=== PATIENT | female | born 1945 | race Hispanic/Latino ===

== ENCOUNTER 2016-02-10 14:16 | Inpatient (IN) | payer MEDICAID, MEDICARE ==
[~2016-02-10] VITALS: Ht 167.6 cm; Wt 74.8 kg
[~2016-02-10 14:16] MED LIST: ACETAMINOP500 MG/51 ORAL; ARICEPT10 MG ORAL; ASCORBIC ACID500 MG ORAL; ASPIR 8181 MG ORAL; ATIVAN0.5 MG ORAL; ATIVAN1 MG ORAL; CARAFATE1 G1 ORAL; CEFEPIME-D1 GM/50 ML IVPB; CELEXA20 MG PO; COGENTIN1 MG PO; COLACE100 MG ORAL; CRANBERRY400 MG PO; DEPAKOTE250 MG PO; FUROSEMIDE20 M1 ORAL; HEPARIN SO1000 UNIT3 SUBQ; INVANZ1 GM IVPB; METOPROLOL TART25 MG ORAL; MULTI VITAMIN1 EACH PO; NEURONTIN300 MG PO; NOVOLIN R100 UNIT/1 SUBQ; OMEPRAZOLE20 M2 ORAL; RISPERDAL2 MG ORAL; VICODIN ES1 EA ORAL; ZYPREXA5 MG ORAL
--- NOTE | 2016-02-10 14:45 | Emergency Room Report ---
History of Present Illness General Chief Complaint: Dyspnea/Respdistress Source: Medical Record, PMD Present Illness HPI 70 YO F sent by PMD from SNF for "low O2 sat at SNF." No other associated documented fever/chills, cough, c/o chest pain, SOB, abd pain per SNF/EMS. Patient not providing additional info at this time. Of note, when patient asleep, O2 sat is 89%. When stimulated, O2 sat to 98% on room air. Patient is breathing with neck extended, mouth wide open. Does not take deep breaths naturally. Allergies: Coded Allergies: ALCOHOL (Verified Allergy, Unknown, 11/28/09) Patient History Past Medical History: see triage record, old chart reviewed, other - Multiple UTIs Past Surgical History: unable to obtain Pertinent Family History: unable to obtain Social History: Denies: alcohol use, drug use, smoking Now: No Immunizations: UTD Reviewed Nursing Documentation: PMH: Agreed, PSxH: Agreed Nursing Documentation-PMH Hx Cardiac Problems: Yes - anemia Hx Hypertension: Yes Hx Diabetes: Yes Hx Cancer: No Hx Gastrointestinal Problems: Yes - gerd Hx Neurological Problems: Yes - multpile sclerosis, schizoprenia Hx Dementia: Yes Hx Multiple Sclerosis: Yes Review of Systems All Other Systems: limited - Patient is poor historian Physical Exam Vital Signs Date Time Temp Pulse Resp B/P Pulse Ox O2 Delivery O2 Flow Rate FiO2 02/10/16 14:22 97.5 65 14 116/57 97 Room Air Sp02 EP Interpretation: reviewed, normal, other - Sydnee patient asleep, O2 sat is 89%. When stimulated, O2 sat to 98% on room air. Patient is breathing with neck extended, mouth wide open. Does not take deep breaths naturally. General Appearance: normal inspection, well appearing, no apparent distress, alert, non-toxic, obese Head: normocephalic, atraumatic Eyes: bilateral eye EOMI, bilateral eye PERRL ENT: normal ENT inspection, hearing grossly normal, normal pharynx, no angioedema, normal voice Neck: normal inspection, full range of motion, supple, no meningismus, no bony tend Respiratory: normal inspection, lungs clear, normal breath sounds, no rhonchi, no respiratory distress, no retraction, no accessory muscle use, no wheezing Cardiovascular #1: regular rate, rhythm, no edema Gastrointestinal: normal inspection, normal bowel sounds, non tender, soft, no guarding, no hernia Genitourinary: no CVA tenderness Neurologic: normal inspection, alert, responsive, 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 I attest that this information is true, accurate and complete to the best of my knowledge. I understand that any falsification, omission, or concealment of material fact may subject me to administrative, civil, or criminal liability. This patient warrants hospital admission for extreme of age and has a condition that cannot be treated as outpatient. Diagnostic Impression: Primary Impression: Hypoxia ER Course 70 YO F sent from SNF for episode of alleged hypoxia. Patient desats to 89% when asleep. Improves to 98% on RA when stimulated. DDx includes sleep apnea, PNA, URI PLAN Will check basic labs, UA, CXR Re-eval EKG Diagnostic Results Rate: normal Rhythm: NSR ST Segments: no acute changes ASA given to the pt in ED: No Rhythm Strip Diag. Results EP Interpretation: yes Rate: 65 Rhythm: NSR, no PVC's, no ectopy Chest X-Ray Diagnostic Results EP Interpretation: Yes Findings: no consolidation, no effusion, no pneumothorax, no acute cardiopulmonary disease, other - Right elevated hemidiaphragm seen on previous CXRs Number of Views: 1 Reevaluation Time: 16:18 Last Vital Signs Date Time Temp Pulse Resp B/P Pulse Ox O2 Delivery O2 Flow Rate FiO2 02/10/16 14:22 97.5 65 14 116/57 97 Room Air Status: improved Reevaluation Impression Labs: 13K leuks. H&H stable. UA with 2-4WBCs, 3+ LE, no nitrities. Troponin 0 , CXR: No obvious acute PNA. Unchanged elevated right hemidiaphragm from previous ECG is NSR, no ischemia. A: Empiric Abx given for recurrent UTI. Endorsed to Dr Hassan at 419pm for tele admission for hypoxia episode and UTI Disposition: ADMITTED INPATIENT Condition: Serious ELIZABETH VILLAFANA M.D. Feb 10, 2016 14:45
[2016-02-10] MEDS ORDERED: MILK OF MA400 MG/51 ORAL (14:52)
[2016-02-10] MEDS ORDERED: NUEDEXTA 20-101 EAC1 PO (14:52)
[2016-02-10] MEDS ORDERED: UTI-STAT L3875 MG/31 PO (14:52)
[2016-02-10] MEDS ORDERED: GERI-TUSSI100 MG/5 M PO (14:58)
[2016-02-10] MEDS ORDERED: IPRATROPIU0.2 MG/1 M HHN (14:58)
[2016-02-10] MEDS ORDERED: ATARAX25 MG ORAL (14:58)
[2016-02-10 14:59] VITALS: BP 116/57
[2016-02-10] MEDS ORDERED: KLONOPIN1 MG ORAL (15:01)
[2016-02-10 15:18] LABS: BASOPHILS % (AUTO) 0.7 % (0.0-2.0); EOSINOPHILS % (AUTO) 0.1 % (0.0-3.0); LYMPHOCYTES % (AUTO) 15.2 % (20.0-45.0); MEAN CORPUSCULAR HEMOGLOBIN 30.1 PG (27.0-31.0); MEAN CORPUSCULAR VOLUME 94 FL (80-99); MONOCYTES % (AUTO) 6.6 % (1.0-10.0); NEUTROPHILS % (AUTO) 77.4 % (45.0-75.0); PLATELET COUNT 204 K/UL (150-450); RED BLOOD COUNT 3.99 M/UL (4.20-5.40); RED CELL DISTRIBUTION WIDTH 13.7 % (11.6-14.8); WHITE BLOOD COUNT 13.2 K/UL (4.8-10.8)
[2016-02-10 15:29] LABS: APPEARANCE,URINE SLIGHTLY CLOUDY; KETONES,URINE NEGATIVE (NEGATIVE); LEUKOCYTE ESTERASE ,URINE 3+ (NEGATIVE); NITRITE,URINE NEGATIVE (NEGATIVE); PH,URINE 6.5 (4.5-8.0); PROTEIN,URINE 2+ (NEGATIVE); UROBILINOGEN,URINE 1 MG/DL (0.0-1.0)
[2016-02-10 15:38] LABS: ALANINE AMINOTRANSFERASE < 5 U/L (3-33); ALBUMIN/GLOBULIN RATIO 0.8 (1.0-2.7); ANION GAP 14 (5-15); ASPARTATE AMINO TRANSFERASE 12 U/L (5-40); CALCIUM 8.7 mg/dL (8.6-10.2); CARBON DIOXIDE 29 mEQ/L (20-30); CHLORIDE 94 mEQ/L (98-107); CREATININE 0.6 mg/dL (0.5-0.9); HEMOLYSIS 46; POTASSIUM 3.9 mEQ/L (3.4-4.9); SODIUM 137 mEQ/L (135-145); TOTAL PROTEIN 7.1 g/dL (6.6-8.7)
[2016-02-10 15:39] LABS: AMORPHOUS SEDIMENT,UR FEW /LPF; BACTERIA,URINE FEW /HPF; RBC,URINE 0-2 /HPF (0 - 2); SQUAMOUS EPITHELIAL CELL,UR FEW /LPF (NONE/OCC)
[2016-02-10 15:41] LABS: TROPONIN I < 0.30 ng/mL (<=0.30)
[2016-02-10 15:48] LABS: CKMB < 1.5 ng/mL (< 3.8)
[2016-02-10 15:52] VITALS: BP 108/54
[2016-02-10] MEDS ORDERED: Zosyn 3.375gm inj ONE (16:33)
[2016-02-10] MEDS ORDERED: DuoNeb 0.5-3(2.5)mg/3ml neb HHN PRN (16:45)
[2016-02-10] MEDS ORDERED: Miralax 17gm pkt ORAL PRN (16:45)
[2016-02-10] MEDS ORDERED: Mylanta II UD 30ml ORAL PRN (16:45)
[2016-02-10] MEDS ORDERED: Nitroglycerin Subl 0.4mg tab (Bottle Of 25) SL PRN (16:45)
--- NOTE | 2016-02-10 16:49 | Consultation ---
History of Present Illness General Date patient seen: Feb 10, 2016 Chief Complaint: Dyspnea/Respdistress Reason for Consultation: christopheralejandra Present Illness HPI 70year old female with hx of dementia, psychosis, depression, multiple sclerosis , half-way resident sent in for low oxygen saturation at SNF. Pt is being admitted to rule out early pneumonia, influenza. Pt was also desaturating to 89 % in ER. Patient looks comfortable and doesn't have any other complains. Allergies: Coded Allergies: ALCOHOL (Verified Allergy, Unknown, 11/28/09) Medication History Scheduled Ascorbic Acid* (Ascorbic Acid*), 500 MG ORAL BID, (Reported) Aspirin* (Aspir 81*), 81 MG ORAL DAILY, (Reported) Benztropine Mesylate (Benztropine Mesylate), 1 MG PO BID, (Reported) Citalopram Hydrobromide* (Celexa*), 5 MG PO EVERY OTHER DAY, (Reported) Clonazepam* (Klonopin*), 1 MG ORAL Q6H, (Reported) Cran/Vitc/Mannose/Inulin/Brom (Uti-Stat Liquid), 3,875 MG PO DAILY, (Reported) Cranberry (Cranberry), 1 TAB PO BID, (Reported) Dextromethorphan Hbr/Quinidine (Nuedexta 20-10 Mg Capsule), 1 EACH PO BID, ( Reported) Divalproex Sodium* (Depakote*), 250 MG PO Q12HR, (Reported) Docusate Sodium* (Colace*), 100 MG ORAL DAILY, (Reported) Donepezil Hcl* (Aricept*), 10 MG ORAL BEDTIME, (Reported) Ertapenem Sodium* (INVanz*), 1 GM IVPB Q24H, (Reported) Furosemide* (Lasix*), 20 MG ORAL DAILY, (Reported) Gabapentin (Neurontin), 300 MG PO BID, (Reported) Guaifenesin (Denise-Tussin), 100 MG PO EVERY 6 HOURS, (Reported) Heparin Sodium,Porcine/Pf (Heparin Sod 1,000 Unit/Ml Vial), 5,000 UNIT SUBQ Q12HR, (Reported) Hydroxyzine HCl (Hydroxyzine HCl), 25 MG ORAL FOUR TIMES A DAY, (Reported) Insulin Regular, Human* (Novolin R*), 0 SUBQ .SLIDING SCALE, (Reported) Magnesium Hydroxide* (Milk Of Magnesia*), 30 ML ORAL DAILY, (Reported) Metoprolol Tartrate* (Metoprolol Tartrate*), 25 MG ORAL Q12HR, (Reported) Multivitamin (Multi Vitamin Daily), 1 EACH PO DAILY, (Reported) Olanzapine* (Zyprexa*), 5 MG ORAL BID, (Reported) Omeprazole (Omeprazole), 20 MG ORAL ACBREAKFAST, (Reported) Risperidone* (Risperdal*), 2 MG ORAL THREE TIMES A DAY, (Reported) Sucralfate* (Carafate*), 1 GM ORAL AC, (Reported) Scheduled PRN Acetaminophen (Acetaminophen), 650 MG ORAL Q4H PRN for Mild Pain/Temp > 100.5, ( Reported) Acetaminophen/Hydrocodone 7.5/750 (Vicodin Es), 1 TAB ORAL Q4HR PRN for Moderate Pain (Pain Scale 4-6), (Reported) Ipratropium Fossil 0.5MG/2.5ML (Ipratropium Fossil 0.5MG/2.5ML), 0.5 MG HHN EVERY 4 HOURS PRN for Shortness of Breath, (Reported) Lorazepam* (Ativan*), 0.25 MG ORAL BID PRN for For Anxiety, (Reported) Patient History Healthcare decision maker Resuscitation status Advanced Directive on File Review of Systems All Other Systems: negative except mentioned in HPI Physical Exam Lines, tubes and drains: peripheral HEENT: normocephalic, atraumatic Neck: non-tender, normal alignment Respiratory/Chest: chest wall non-tender, lungs clear Cardiovascular/Chest: normal peripheral pulses, normal rate Abdomen: normal bowel sounds, non tender Genitourinary/Rectal: normal genital exam, normal rectal exam Skin Exam: normal pigmentation 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 Last 24 Hour Vital Signs Date Time Temp Pulse Resp B/P Pulse Ox O2 Delivery O2 Flow Rate FiO2 02/10/16 15:52 71 18 108/54 97 Nasal Cannula 2.0 02/10/16 15:05 65 14 Room Air 02/10/16 14:59 97.5 14 116/57 97 Room Air 02/10/16 14:22 97.5 65 14 116/57 97 Room Air Laboratory Tests Test 02/10/16 14:45 12/30/16 15:20 White Blood Count 13.2 K/UL (4.8-10.8) H Red Blood Count 3.99 M/UL (4.20-5.40) L Hemoglobin 12.0 G/DL (12.0-16.0) Hematocrit 37.4 % (37.0-47.0) Mean Corpuscular Volume 94 FL (80-99) Mean Corpuscular Hemoglobin 30.1 PG (27.0-31.0) Mean Corpuscular Hemoglobin Concent 32.0 G/DL (32.0-36.0) Red Cell Distribution Width 13.7 % (11.6-14.8) Platelet Count 204 K/UL (150-450) Mean Platelet Volume 8.0 FL (6.5-10.1) Neutrophils (%) (Auto) 77.4 % (45.0-75.0) H Lymphocytes (%) (Auto) 15.2 % (20.0-45.0) L Monocytes (%) (Auto) 6.6 % (1.0-10.0) Eosinophils (%) (Auto) 0.1 % (0.0-3.0) Basophils (%) (Auto) 0.7 % (0.0-2.0) Sodium Level 137 mEQ/L (135-145) Potassium Level 3.9 mEQ/L (3.4-4.9) Chloride Level 94 mEQ/L (98-107) L Carbon Dioxide Level 29 mEQ/L (20-30) Anion Gap 14 (5-15) Blood Urea Nitrogen 16 mg/dL (7-23) Creatinine 0.6 mg/dL (0.5-0.9) Estimat Glomerular Filtration Rate mL/min (>60) Glucose Level 122 mg/dL (74-106) H Calcium Level 8.7 mg/dL (8.6-10.2) Total Bilirubin 0.5 mg/dL (0.0-1.2) Aspartate Amino Transf (AST/SGOT) 12 U/L (5-40) Alanine Aminotransferase (ALT/SGPT) < 5 U/L (3-33) Alkaline Phosphatase 65 U/L (35-104) Creatine Kinase MB < 1.5 ng/mL (< 3.8) Troponin I < 0.30 ng/mL (<=0.30) Total Protein 7.1 g/dL (6.6-8.7) Albumin 3.2 g/dL (3.5-5.2) L Globulin 3.9 g/dL Albumin/Globulin Ratio 0.8 (1.0-2.7) L Urine Color Yellow Urine Appearance Slightly cloudy Urine pH 6.5 (4.5-8.0) Urine Specific [place] 1.010 (1.005-1.035) Urine Protein 2+ (NEGATIVE) H Urine Glucose (UA) Negative (NEGATIVE) Urine Ketones Negative (NEGATIVE) Urine Occult Blood 2+ (NEGATIVE) H Urine Nitrite Negative (NEGATIVE) Urine Bilirubin Negative (NEGATIVE) Urine Urobilinogen 1 MG/DL (0.0-1.0) H Urine Leukocyte Esterase 3+ (NEGATIVE) H Urine RBC 0-2 /HPF (0 - 2) Urine WBC 2-4 /HPF (0 - 2) Urine Squamous Epithelial Cells Few /LPF (NONE/OCC) Urine Amorphous Sediment Few /LPF (NONE) H Urine Bacteria Few /HPF (NONE) Height (Feet): 5 Height (Inches): 6.00 Weight (Pounds): 165 Medications Current Medications Medications (Trade) Dose Ordered Sig/Ivone Route PRN Reason Start Time Stop Time Status Last Admin Dose Admin Acetaminophen (Tylenol) 650 mg Q4H PRN ORAL fever 02/10/16 16:45 03/11/16 16:44 UNV Al Hydroxide/Mg Hydroxide (Mylanta II) 30 ml Q6H PRN ORAL dyspepsia 02/10/16 16:45 03/11/16 16:44 UNV Albuterol/ Ipratropium 3 ml 3 ml EVERY 4 HOURS PRN HHN Shortness of Breath 02/10/16 16:45 02/15/16 16:44 UNV Aspirin (Ecotrin) 81 mg DAILY ORAL 02/11/16 09:00 03/12/16 08:59 UNV Cefepime HCl/ Dextrose (Maxipime/D5W 50ml) 50 ml @ 100 mls/hr EVERY 12 HOURS IV 02/10/16 21:00 02/17/16 20:59 UNV Citalopram Hydrobromide (celeXA) 5 mg EVERY OTHER DAY ORAL 02/12/16 09:00 03/13/16 08:59 UNV Clonazepam (KlonoPIN) 1 mg Q6H ORAL 02/10/16 16:45 02/17/16 16:44 UNV Dextrose (Dextrose 50%) STAT PRN IV Hypoglycemia 02/10/16 16:45 03/11/16 16:44 UNV Divalproex Sodium (Depakote) 250 mg Q12HR ORAL 02/10/16 21:00 03/11/16 20:59 UNV Donepezil HCl (Aricept) 10 mg BEDTIME ORAL 02/10/16 21:00 03/11/16 20:59 UNV Gabapentin (Neurontin) 300 mg BID ORAL 02/10/16 18:00 03/11/16 17:59 UNV Heparin Sodium (Porcine) (Heparin 5000 units/ml) 5,000 units EVERY 12 HOURS SUBQ 02/10/16 21:00 03/11/16 20:59 UNV Insulin Aspart (NovoLOG) BEFORE MEALS AND HS SUBQ 02/10/16 21:00 03/11/16 20:59 UNV Metoprolol Tartrate (Lopressor) 25 mg Q12HR ORAL 02/10/16 21:00 03/11/16 20:59 UNV Nitroglycerin (Ntg) 0.4 mg Q5M PRN SL Prn Chest Pain 02/10/16 16:45 03/11/16 16:44 UNV Olanzapine (ZyPREXA) 5 mg BID ORAL 02/10/16 18:00 03/11/16 17:59 UNV Ondansetron HCl (Zofran) 4 mg Q6H PRN IVP Nausea & Vomiting 02/10/16 16:45 03/11/16 16:44 UNV Piperacillin Sod/ Tazobactam Sod/ Sodium Chloride (Zosyn/Sodium Chloride 100ml bag) 100 ml @ 200 mls/hr ONCE ONCE IVPB 02/10/16 16:30 02/10/16 16:59 02/10/16 16:34 Polyethylene Glycol (Miralax) 17 gm DAILYPRN PRN ORAL Constipation 02/10/16 16:45 03/11/16 16:44 UNV Risperidone (RisperDAL) 2 mg THREE TIMES A DAY ORAL 02/10/16 18:00 03/11/16 17:59 UNV Temazepam (Restoril) 15 mg HSPRN PRN ORAL Insomnia 02/10/16 16:45 02/17/16 16:44 UNV Assessment/Plan Problem List: (1) Pneumonia ICD Codes: J18.9 - Pneumonia, unspecified organism SNOMED: 336250293 (2) Anemia ICD Codes: D64.9 - Anemia SNOMED: 544346705 (3) Diabetes ICD Codes: E11.9 - Type 2 diabetes mellitus without complications SNOMED: 42630798 (4) Hypoxemia ICD Codes: R09.02 - Hypoxemia SNOMED: 969151472 (5) Multiple sclerosis ICD Codes: G35 - Multiple sclerosis SNOMED: 64898125 GIGI WASSERMAN Feb 10, 2016 16:49
[2016-02-10 20:00] VITALS: BP 133/72
[2016-02-10] MEDS: Heparin 5000 units/ml inj SUBQ SCH (21:00)
[2016-02-10] MEDS: Metoprolol 25mg tab ORAL SCH (21:00)
[2016-02-10] MEDS: NovoLOG Insulin Flexpen SUBQ SCH (21:00)
[2016-02-10] MEDS: Donepezil 10mg tab ORAL SCH (21:00)
[2016-02-11] VITALS: BP 140/87
[2016-02-11 04:00] VITALS: BP 129/68
[2016-02-11] MEDS: NovoLOG Insulin Flexpen SUBQ SCH ×4 (06:30→20:45)
[2016-02-11 08:09] VITALS: BP 105/57
[2016-02-11] MEDS: Metoprolol 25mg tab ORAL SCH ×2 (08:25→20:30)
[2016-02-11] MEDS: Heparin 5000 units/ml inj SUBQ SCH ×2 (08:27→20:41)
[2016-02-11] MEDS ORDERED: Aspirin EC 81mg tab ORAL SCH (09:00)
[2016-02-11 11:57] VITALS: BP 124/63
--- NOTE | 2016-02-11 13:21 | Infectious Diseases Prog Note ---
Assessment/Plan Problems: (1) UTI (urinary tract infection) Assessment & Plan: will send urine culture and continue cefepime for now (2) Leukocytosis Assessment & Plan: suspect due to UTI and dehydration, monitor WBC, recommend hydration (3) Hypoxemia Assessment & Plan: suspect sleep apnea, may need sleep study to confirm, pulmonary is following (4) Diabetes Assessment & Plan: recomment tight glycemic control to keep fasting less than 120 and premeal less than 130 Subjective Allergies: Coded Allergies: ALCOHOL (Verified Allergy, Unknown, 11/28/09) Objective Vital Signs Last 24 Hour Vital Signs Date Time Temp Pulse Resp B/P Pulse Ox O2 Delivery O2 Flow Rate FiO2 02/11/16 11:57 97.5 67 20 124/63 96 Nasal Cannula 2.0 02/11/16 08:25 65 105/57 02/11/16 08:15 64 02/11/16 08:09 97.0 65 20 105/57 97 Nasal Cannula 2.0 02/11/16 04:15 65 02/11/16 04:00 97.0 65 20 129/68 95 Room Air 02/11/16 00:00 97.7 69 16 140/87 95 Nasal Cannula 2.0 02/10/16 23:47 66 02/10/16 20:00 96.8 64 18 133/72 Nasal Cannula 2.0 02/10/16 20:00 63 02/10/16 17:14 97.5 71 18 108/54 97 Nasal Cannula 2.0 02/10/16 15:52 71 18 108/54 97 Nasal Cannula 2.0 02/10/16 15:05 65 14 Room Air 02/10/16 14:59 97.5 14 116/57 97 Room Air 02/10/16 14:22 97.5 65 14 116/57 97 Room Air Height (Feet): 5 Height (Inches): 6.00 Weight (Pounds): 165 Laboratory Tests Test 02/10/16 14:45 02/10/16 15:20 02/11/16 10:55 White Blood Count 13.2 K/UL (4.8-10.8) H Red Blood Count 3.99 M/UL (4.20-5.40) L Hemoglobin 12.0 G/DL (12.0-16.0) Hematocrit 37.4 % (37.0-47.0) Mean Corpuscular Volume 94 FL (80-99) Mean Corpuscular Hemoglobin 30.1 PG (27.0-31.0) Mean Corpuscular Hemoglobin Concent 32.0 G/DL (32.0-36.0) Red Cell Distribution Width 13.7 % (11.6-14.8) Platelet Count 204 K/UL (150-450) Mean Platelet Volume 8.0 FL (6.5-10.1) Neutrophils (%) (Auto) 77.4 % (45.0-75.0) H Lymphocytes (%) (Auto) 15.2 % (20.0-45.0) L Monocytes (%) (Auto) 6.6 % (1.0-10.0) Eosinophils (%) (Auto) 0.1 % (0.0-3.0) Basophils (%) (Auto) 0.7 % (0.0-2.0) Sodium Level 137 mEQ/L (135-145) Potassium Level 3.9 mEQ/L (3.4-4.9) Chloride Level 94 mEQ/L (98-107) L Carbon Dioxide Level 29 mEQ/L (20-30) Anion Gap 14 (5-15) Blood Urea Nitrogen 16 mg/dL (7-23) Creatinine 0.6 mg/dL (0.5-0.9) Estimat Glomerular Filtration Rate mL/min (>60) Glucose Level 122 mg/dL (74-106) H Calcium Level 8.7 mg/dL (8.6-10.2) Total Bilirubin 0.5 mg/dL (0.0-1.2) Aspartate Amino Transf (AST/SGOT) 12 U/L (5-40) Alanine Aminotransferase (ALT/SGPT) < 5 U/L (3-33) Alkaline Phosphatase 65 U/L (35-104) Creatine Kinase MB < 1.5 ng/mL (< 3.8) Troponin I < 0.30 ng/mL (<=0.30) Total Protein 7.1 g/dL (6.6-8.7) Albumin 3.2 g/dL (3.5-5.2) L Globulin 3.9 g/dL Albumin/Globulin Ratio 0.8 (1.0-2.7) L Urine Color Yellow Urine Appearance Slightly cloudy Urine pH 6.5 (4.5-8.0) Urine Specific [place] 1.010 (1.005-1.035) Urine Protein 2+ (NEGATIVE) H Urine Glucose (UA) Negative (NEGATIVE) Urine Ketones Negative (NEGATIVE) Urine Occult Blood 2+ (NEGATIVE) H Urine Nitrite Negative (NEGATIVE) Urine Bilirubin Negative (NEGATIVE) Urine Urobilinogen 1 MG/DL (0.0-1.0) H Urine Leukocyte Esterase 3+ (NEGATIVE) H Urine RBC 0-2 /HPF (0 - 2) Urine WBC 2-4 /HPF (0 - 2) Urine Squamous Epithelial Cells Few /LPF (NONE/OCC) Urine Amorphous Sediment Few /LPF (NONE) H Urine Bacteria Few /HPF (NONE) Urine Legionella Antigen Pending Current Medications Medications (Trade) Dose Ordered Sig/Ivone Route PRN Reason Start Time Stop Time Status Last Admin Dose Admin Acetaminophen (Tylenol) 650 mg Q4H PRN ORAL fever 02/10/16 16:45 03/11/16 16:44 Al Hydroxide/Mg Hydroxide (Mylanta II) 30 ml Q6H PRN ORAL dyspepsia 02/10/16 16:45 03/11/16 16:44 Albuterol/ Ipratropium 3 ml 3 ml Q4H PRN HHN Shortness of Breath 02/10/16 16:45 02/15/16 16:44 Aspirin (Ecotrin) 81 mg DAILY ORAL 02/11/16 09:00 03/12/16 08:59 02/11/16 08:25 Cefepime HCl/ Dextrose (Maxipime/D5W 50ml) 50 ml @ 100 mls/hr Q24H IVPB 02/10/16 20:00 02/17/16 19:59 02/10/16 20:30 Citalopram Hydrobromide (celeXA) 5 mg EVERY OTHER DAY ORAL 02/12/16 09:00 03/13/16 08:59 Clonazepam (KlonoPIN) 1 mg Q6H PRN ORAL AGITATION 02/11/16 12:00 02/18/16 11:59 Dextrose (Dextrose 50%) STAT PRN IV Hypoglycemia 02/10/16 16:45 03/11/16 16:44 Divalproex Sodium (Depakote) 250 mg Q12HR ORAL 02/10/16 21:00 03/11/16 20:59 02/11/16 08:25 Donepezil HCl (Aricept) 10 mg BEDTIME ORAL 02/10/16 21:00 03/11/16 20:59 Gabapentin (Neurontin) 300 mg BID ORAL 02/10/16 18:00 03/11/16 17:59 02/11/16 08:26 Heparin Sodium (Porcine) (Heparin 5000 units/ml) 5,000 units EVERY 12 HOURS SUBQ 02/10/16 21:00 03/11/16 20:59 02/11/16 08:27 Insulin Aspart (NovoLOG) BEFORE MEALS AND HS SUBQ 02/10/16 21:00 03/11/16 20:59 Metoprolol Tartrate (Lopressor) 25 mg Q12HR ORAL 02/10/16 21:00 03/11/16 20:59 02/11/16 08:25 Nitroglycerin (Ntg) 0.4 mg Q5M X 3 DOSES PRN SL Prn Chest Pain 02/10/16 16:45 03/11/16 16:44 Olanzapine (ZyPREXA) 5 mg Q12HR ORAL 02/10/16 21:00 03/11/16 20:59 02/11/16 08:25 Ondansetron HCl (Zofran) 4 mg Q6H PRN IVP Nausea & Vomiting 02/10/16 16:45 03/11/16 16:44 Polyethylene Glycol (Miralax) 17 gm DAILYPRN PRN ORAL Constipation 02/10/16 16:45 03/11/16 16:44 Risperidone (RisperDAL) 2 mg THREE TIMES A DAY ORAL 02/10/16 21:00 03/11/16 20:59 02/11/16 13:13 Temazepam (Restoril) 15 mg HSPRN PRN ORAL Insomnia 02/10/16 16:45 02/17/16 16:44 Mague Valladares M.D. Feb 11, 2016 13:21
--- NOTE | 2016-02-11 13:31 | Consultation ---
History of Present Illness General Date patient seen: Feb 10, 2016 Chief Complaint: Dyspnea/Respdistress Reason for Consultation: [email or web address] Present Illness HPI 70year old female with hx of dementia, psychosis, depression, multiple sclerosis , detention resident sent in for low oxygen saturation at SNF. Pt is being admitted to rule out early pneumonia, influenza. Pt was also desaturating to 89 % in ER. Patient looks comfortable and doesn't have any other complains. Allergies: Coded Allergies: ALCOHOL (Verified Allergy, Unknown, 11/28/09) Medication History Scheduled Ascorbic Acid* (Ascorbic Acid*), 500 MG ORAL BID, (Reported) Aspirin* (Aspir 81*), 81 MG ORAL DAILY, (Reported) Benztropine Mesylate (Benztropine Mesylate), 1 MG PO BID, (Reported) Citalopram Hydrobromide* (Celexa*), 5 MG PO EVERY OTHER DAY, (Reported) Clonazepam* (Klonopin*), 1 MG ORAL Q6H, (Reported) Cran/Vitc/Mannose/Inulin/Brom (Uti-Stat Liquid), 3,875 MG PO DAILY, (Reported) Cranberry (Cranberry), 1 TAB PO BID, (Reported) Dextromethorphan Hbr/Quinidine (Nuedexta 20-10 Mg Capsule), 1 EACH PO BID, ( Reported) Divalproex Sodium* (Depakote*), 250 MG PO Q12HR, (Reported) Docusate Sodium* (Colace*), 100 MG ORAL DAILY, (Reported) Donepezil Hcl* (Aricept*), 10 MG ORAL BEDTIME, (Reported) Ertapenem Sodium* (INVanz*), 1 GM IVPB Q24H, (Reported) Furosemide* (Lasix*), 20 MG ORAL DAILY, (Reported) Gabapentin (Neurontin), 300 MG PO BID, (Reported) Guaifenesin (Denise-Tussin), 100 MG PO EVERY 6 HOURS, (Reported) Heparin Sodium,Porcine/Pf (Heparin Sod 1,000 Unit/Ml Vial), 5,000 UNIT SUBQ Q12HR, (Reported) Hydroxyzine HCl (Hydroxyzine HCl), 25 MG ORAL FOUR TIMES A DAY, (Reported) Insulin Regular, Human* (Novolin R*), 0 SUBQ .SLIDING SCALE, (Reported) Magnesium Hydroxide* (Milk Of Magnesia*), 30 ML ORAL DAILY, (Reported) Metoprolol Tartrate* (Metoprolol Tartrate*), 25 MG ORAL Q12HR, (Reported) Multivitamin (Multi Vitamin Daily), 1 EACH PO DAILY, (Reported) Olanzapine* (Zyprexa*), 5 MG ORAL BID, (Reported) Omeprazole (Omeprazole), 20 MG ORAL ACBREAKFAST, (Reported) Risperidone* (Risperdal*), 2 MG ORAL THREE TIMES A DAY, (Reported) Sucralfate* (Carafate*), 1 GM ORAL AC, (Reported) Scheduled PRN Acetaminophen (Acetaminophen), 650 MG ORAL Q4H PRN for Mild Pain/Temp > 100.5, ( Reported) Acetaminophen/Hydrocodone 7.5/750 (Vicodin Es), 1 TAB ORAL Q4HR PRN for Moderate Pain (Pain Scale 4-6), (Reported) Ipratropium [place] 0.5MG/2.5ML (Ipratropium [place] 0.5MG/2.5ML), 0.5 MG HHN EVERY 4 HOURS PRN for Shortness of Breath, (Reported) Lorazepam* (Ativan*), 0.25 MG ORAL BID PRN for For Anxiety, (Reported) Patient History Healthcare decision maker Resuscitation status Full Code Advanced Directive on File Past Medical/Surgical History Past Medical/Surgical History: (1) Diabetes (2) Multiple sclerosis (3) Anemia Review of Systems All Other Systems: negative except mentioned in HPI Physical Exam General Appearance: WD/WN Lines, tubes and drains: central line HEENT: normocephalic, atraumatic Neck: non-tender Respiratory/Chest: chest wall non-tender, lungs clear Abdomen: normal bowel sounds Genitourinary/Rectal: normal genital exam Last 24 Hour Vital Signs Date Time Temp Pulse Resp B/P Pulse Ox O2 Delivery O2 Flow Rate FiO2 02/11/16 11:57 97.5 67 20 124/63 96 Nasal Cannula 2.0 02/11/16 08:25 65 105/57 02/11/16 08:15 64 02/11/16 08:09 97.0 65 20 105/57 97 Nasal Cannula 2.0 02/11/16 04:15 65 02/11/16 04:00 97.0 65 20 129/68 95 Room Air 02/11/16 00:00 97.7 69 16 140/87 95 Nasal Cannula 2.0 02/10/16 23:47 66 02/10/16 20:00 96.8 64 18 133/72 Nasal Cannula 2.0 02/10/16 20:00 63 02/10/16 17:14 97.5 71 18 108/54 97 Nasal Cannula 2.0 02/10/16 15:52 71 18 108/54 97 Nasal Cannula 2.0 02/10/16 15:05 65 14 Room Air 02/10/16 14:59 97.5 14 116/57 97 Room Air 02/10/16 14:22 97.5 65 14 116/57 97 Room Air Intake and Output 02/10/16 02/11/16 19:00 07:00 Output Total 100 ml Balance -100 ml Output Urine Total 100 ml # Voids 1 1 Laboratory Tests Test 02/10/16 14:45 02/10/16 15:20 02/11/16 10:55 White Blood Count 13.2 K/UL (4.8-10.8) H Red Blood Count 3.99 M/UL (4.20-5.40) L Hemoglobin 12.0 G/DL (12.0-16.0) Hematocrit 37.4 % (37.0-47.0) Mean Corpuscular Volume 94 FL (80-99) Mean Corpuscular Hemoglobin 30.1 PG (27.0-31.0) Mean Corpuscular Hemoglobin Concent 32.0 G/DL (32.0-36.0) Red Cell Distribution Width 13.7 % (11.6-14.8) Platelet Count 204 K/UL (150-450) Mean Platelet Volume 8.0 FL (6.5-10.1) Neutrophils (%) (Auto) 77.4 % (45.0-75.0) H Lymphocytes (%) (Auto) 15.2 % (20.0-45.0) L Monocytes (%) (Auto) 6.6 % (1.0-10.0) Eosinophils (%) (Auto) 0.1 % (0.0-3.0) Basophils (%) (Auto) 0.7 % (0.0-2.0) Sodium Level 137 mEQ/L (135-145) Potassium Level 3.9 mEQ/L (3.4-4.9) Chloride Level 94 mEQ/L (98-107) L Carbon Dioxide Level 29 mEQ/L (20-30) Anion Gap 14 (5-15) Blood Urea Nitrogen 16 mg/dL (7-23) Creatinine 0.6 mg/dL (0.5-0.9) Estimat Glomerular Filtration Rate mL/min (>60) Glucose Level 122 mg/dL (74-106) H Calcium Level 8.7 mg/dL (8.6-10.2) Total Bilirubin 0.5 mg/dL (0.0-1.2) Aspartate Amino Transf (AST/SGOT) 12 U/L (5-40) Alanine Aminotransferase (ALT/SGPT) < 5 U/L (3-33) Alkaline Phosphatase 65 U/L (35-104) Creatine Kinase MB < 1.5 ng/mL (< 3.8) Troponin I < 0.30 ng/mL (<=0.30) Total Protein 7.1 g/dL (6.6-8.7) Albumin 3.2 g/dL (3.5-5.2) L Globulin 3.9 g/dL Albumin/Globulin Ratio 0.8 (1.0-2.7) L Urine Color Yellow Urine Appearance Slightly cloudy Urine pH 6.5 (4.5-8.0) Urine Specific [place] 1.010 (1.005-1.035) Urine Protein 2+ (NEGATIVE) H Urine Glucose (UA) Negative (NEGATIVE) Urine Ketones Negative (NEGATIVE) Urine Occult Blood 2+ (NEGATIVE) H Urine Nitrite Negative (NEGATIVE) Urine Bilirubin Negative (NEGATIVE) Urine Urobilinogen 1 MG/DL (0.0-1.0) H Urine Leukocyte Esterase 3+ (NEGATIVE) H Urine RBC 0-2 /HPF (0 - 2) Urine WBC 2-4 /HPF (0 - 2) Urine Squamous Epithelial Cells Few /LPF (NONE/OCC) Urine Amorphous Sediment Few /LPF (NONE) H Urine Bacteria Few /HPF (NONE) Urine Legionella Antigen Pending Height (Feet): 5 Height (Inches): 6.00 Weight (Pounds): 165 Medications Current Medications Medications (Trade) Dose Ordered Sig/Ivone Route PRN Reason Start Time Stop Time Status Last Admin Dose Admin Acetaminophen (Tylenol) 650 mg Q4H PRN ORAL fever 02/10/16 16:45 03/11/16 16:44 Al Hydroxide/Mg Hydroxide (Mylanta II) 30 ml Q6H PRN ORAL dyspepsia 02/10/16 16:45 03/11/16 16:44 Albuterol/ Ipratropium 3 ml 3 ml Q4H PRN HHN Shortness of Breath 02/10/16 16:45 02/15/16 16:44 Aspirin (Ecotrin) 81 mg DAILY ORAL 02/11/16 09:00 03/12/16 08:59 02/11/16 08:25 Cefepime HCl/ Dextrose (Maxipime/D5W 50ml) 50 ml @ 100 mls/hr Q24H IVPB 02/10/16 20:00 02/17/16 19:59 02/10/16 20:30 Citalopram Hydrobromide (celeXA) 5 mg EVERY OTHER DAY ORAL 02/12/16 09:00 03/13/16 08:59 Clonazepam (KlonoPIN) 1 mg Q6H PRN ORAL AGITATION 02/11/16 12:00 02/18/16 11:59 Dextrose (Dextrose 50%) STAT PRN IV Hypoglycemia 02/10/16 16:45 03/11/16 16:44 Divalproex Sodium (Depakote) 250 mg Q12HR ORAL 02/10/16 21:00 03/11/16 20:59 02/11/16 08:25 Donepezil HCl (Aricept) 10 mg BEDTIME ORAL 02/10/16 21:00 03/11/16 20:59 Gabapentin (Neurontin) 300 mg BID ORAL 02/10/16 18:00 03/11/16 17:59 02/11/16 08:26 Heparin Sodium (Porcine) (Heparin 5000 units/ml) 5,000 units EVERY 12 HOURS SUBQ 02/10/16 21:00 03/11/16 20:59 02/11/16 08:27 Insulin Aspart (NovoLOG) BEFORE MEALS AND HS SUBQ 02/10/16 21:00 03/11/16 20:59 Metoprolol Tartrate (Lopressor) 25 mg Q12HR ORAL 02/10/16 21:00 03/11/16 20:59 02/11/16 08:25 Nitroglycerin (Ntg) 0.4 mg Q5M X 3 DOSES PRN SL Prn Chest Pain 02/10/16 16:45 03/11/16 16:44 Olanzapine (ZyPREXA) 5 mg Q12HR ORAL 02/10/16 21:00 03/11/16 20:59 02/11/16 08:25 Ondansetron HCl (Zofran) 4 mg Q6H PRN IVP Nausea & Vomiting 02/10/16 16:45 03/11/16 16:44 Polyethylene Glycol (Miralax) 17 gm DAILYPRN PRN ORAL Constipation 02/10/16 16:45 03/11/16 16:44 Risperidone (RisperDAL) 2 mg THREE TIMES A DAY ORAL 02/10/16 21:00 03/11/16 20:59 02/11/16 13:13 Temazepam (Restoril) 15 mg HSPRN PRN ORAL Insomnia 02/10/16 16:45 02/17/16 16:44 Assessment/Plan Problem List: (1) Pneumonia ICD Codes: J18.9 - Pneumonia, unspecified organism SNOMED: 514411510 (2) Hypoxemia ICD Codes: R09.02 - Hypoxemia SNOMED: 285668538 (3) Diabetes ICD Codes: E11.9 - Type 2 diabetes mellitus without complications SNOMED: 88174113 (4) Multiple sclerosis ICD Codes: G35 - Multiple sclerosis SNOMED: 81116150 (5) Anemia ICD Codes: D64.9 - Anemia SNOMED: 702991043 Assessment/Plan respiratory treatment IV antibiotics check sputum sputum induction chest pt dvt prophylaxis GIGI WASSERMAN Feb 11, 2016 13:31
--- NOTE | 2016-02-11 13:36 | Pulmonology Progress Note ---
Assessment/Plan Problems: (1) Pneumonia (2) Anemia (3) Diabetes (4) Hypoxemia (5) Multiple sclerosis Assessment/Plan continue antibiotics respiratory treatment check sputum on cefepime might go to med/surg Subjective ROS Limited/Unobtainable: No Interval Events: looks comfortable, no new complains Allergies: Coded Allergies: ALCOHOL (Verified Allergy, Unknown, 11/28/09) Objective Last 24 Hour Vital Signs Date Time Temp Pulse Resp B/P Pulse Ox O2 Delivery O2 Flow Rate FiO2 02/11/16 11:57 97.5 67 20 124/63 96 Nasal Cannula 2.0 02/11/16 08:25 65 105/57 02/11/16 08:15 64 02/11/16 08:09 97.0 65 20 105/57 97 Nasal Cannula 2.0 02/11/16 04:15 65 02/11/16 04:00 97.0 65 20 129/68 95 Room Air 02/11/16 00:00 97.7 69 16 140/87 95 Nasal Cannula 2.0 02/10/16 23:47 66 02/10/16 20:00 96.8 64 18 133/72 Nasal Cannula 2.0 02/10/16 20:00 63 02/10/16 17:14 97.5 71 18 108/54 97 Nasal Cannula 2.0 02/10/16 15:52 71 18 108/54 97 Nasal Cannula 2.0 02/10/16 15:05 65 14 Room Air 02/10/16 14:59 97.5 14 116/57 97 Room Air 02/10/16 14:22 97.5 65 14 116/57 97 Room Air Intake and Output 02/10/16 02/11/16 19:00 07:00 Output Total 100 ml Balance -100 ml Output Urine Total 100 ml # Voids 1 1 General Appearance: WD/WN HEENT: normocephalic, atraumatic Respiratory/Chest: chest wall non-tender, lungs clear Cardiovascular: normal peripheral pulses, normal rate Abdomen: normal bowel sounds, soft, non tender Extremities: no cyanosis Skin: no rash Neurologic/Psychiatric: abnormal CN, motor weakness, sensory deficit Lymphatic: no neck adenopathy Musculoskeletal: normal muscle bulk Laboratory Tests 02/10/16 14:45: White Blood Count 13.2H, Red Blood Count 3.99L, Hemoglobin 12.0, Hematocrit 37.4 , Mean Corpuscular Volume 94, Mean Corpuscular Hemoglobin 30.1, Mean Corpuscular Hemoglobin Concent 32.0, Red Cell Distribution Width 13.7, Platelet Count 204, Mean Platelet Volume 8.0, Neutrophils (%) (Auto) 77.4H, Lymphocytes ( %) (Auto) 15.2L, Monocytes (%) (Auto) 6.6, Eosinophils (%) (Auto) 0.1, Basophils (%) (Auto) 0.7, Sodium Level 137, Potassium Level 3.9, Chloride Level 94L, Carbon Dioxide Level 29, Anion Gap 14, Blood Urea Nitrogen 16, Creatinine 0.6, Estimat Glomerular Filtration Rate , Glucose Level 122H, Calcium Level 8.7 , Total Bilirubin 0.5, Aspartate Amino Transf (AST/SGOT) 12, Alanine Aminotransferase (ALT/SGPT) < 5, Alkaline Phosphatase 65, Creatine Kinase MB < 1.5, Troponin I < 0.30, Total Protein 7.1, Albumin 3.2L, Globulin 3.9, Albumin/ Globulin Ratio 0.8L 02/10/16 15:20: Urine Color Yellow, Urine Appearance Slightly cloudy, Urine pH 6.5, Urine Specific [place] 1.010, Urine Protein 2+H, Urine Glucose (UA) Negative, Urine Ketones Negative, Urine Occult Blood 2+H, Urine Nitrite Negative, Urine Bilirubin Negative, Urine Urobilinogen 1H, Urine Leukocyte Esterase 3+H, Urine RBC 0-2, Urine WBC 2-4, Urine Squamous Epithelial Cells Few, Urine Amorphous Sediment FewH, Urine Bacteria Few 02/11/16 10:55: Urine Legionella Antigen [Pending] Current Medications Medications (Trade) Dose Ordered Sig/Ivone Route PRN Reason Start Time Stop Time Status Last Admin Dose Admin Acetaminophen (Tylenol) 650 mg Q4H PRN ORAL fever 02/10/16 16:45 03/11/16 16:44 Al Hydroxide/Mg Hydroxide (Mylanta II) 30 ml Q6H PRN ORAL dyspepsia 02/10/16 16:45 03/11/16 16:44 Albuterol/ Ipratropium 3 ml 3 ml Q4H PRN HHN Shortness of Breath 02/10/16 16:45 02/15/16 16:44 Aspirin (Ecotrin) 81 mg DAILY ORAL 02/11/16 09:00 03/12/16 08:59 12/31/16 08:25 Cefepime HCl/ Dextrose (Maxipime/D5W 50ml) 50 ml @ 100 mls/hr Q24H IVPB 02/10/16 20:00 02/17/16 19:59 02/10/16 20:30 Citalopram Hydrobromide (celeXA) 5 mg EVERY OTHER DAY ORAL 02/12/16 09:00 03/13/16 08:59 Clonazepam (KlonoPIN) 1 mg Q6H PRN ORAL AGITATION 02/11/16 12:00 02/18/16 11:59 Dextrose (Dextrose 50%) STAT PRN IV Hypoglycemia 02/10/16 16:45 03/11/16 16:44 Divalproex Sodium (Depakote) 250 mg Q12HR ORAL 02/10/16 21:00 03/11/16 20:59 02/11/16 08:25 Donepezil HCl (Aricept) 10 mg BEDTIME ORAL 02/10/16 21:00 03/11/16 20:59 Gabapentin (Neurontin) 300 mg BID ORAL 02/10/16 18:00 03/11/16 17:59 02/11/16 08:26 Heparin Sodium (Porcine) (Heparin 5000 units/ml) 5,000 units EVERY 12 HOURS SUBQ 02/10/16 21:00 03/11/16 20:59 02/11/16 08:27 Insulin Aspart (NovoLOG) BEFORE MEALS AND HS SUBQ 02/10/16 21:00 03/11/16 20:59 Metoprolol Tartrate (Lopressor) 25 mg Q12HR ORAL 02/10/16 21:00 03/11/16 20:59 02/11/16 08:25 Nitroglycerin (Ntg) 0.4 mg Q5M X 3 DOSES PRN SL Prn Chest Pain 02/10/16 16:45 03/11/16 16:44 Olanzapine (ZyPREXA) 5 mg Q12HR ORAL 02/10/16 21:00 03/11/16 20:59 02/11/16 08:25 Ondansetron HCl (Zofran) 4 mg Q6H PRN IVP Nausea & Vomiting 02/10/16 16:45 03/11/16 16:44 Polyethylene Glycol (Miralax) 17 gm DAILYPRN PRN ORAL Constipation 12/30/16 16:45 03/11/16 16:44 Risperidone (RisperDAL) 2 mg THREE TIMES A DAY ORAL 02/10/16 21:00 03/11/16 20:59 02/11/16 13:13 Temazepam (Restoril) 15 mg HSPRN PRN ORAL Insomnia 02/10/16 16:45 02/17/16 16:44 GIGI WASSERMAN Feb 11, 2016 13:36
--- NOTE | 2016-02-11 14:38 | Diagnostic Imaging Report ---
Indication: PAIN Technique: One view of the chest Comparison: 08/21/2013 Findings: There is marked elevation of right hemidiaphragm again demonstrated. No definite acute infiltrates, effusions, or congestion. Upper limits of normal heart size. Findings are unchanged Impression: Findings as noted. No definite acute process
[2016-02-11 20:00] VITALS: BP 103/62
[2016-02-11] MEDS: Donepezil 10mg tab ORAL SCH (20:31)
--- NOTE | 2016-02-11 20:57 | Consultation ---
DATE OF CONSULTATION: INFECTIOUS DISEASE CONSULTATION CONSULTING PHYSICIAN: Mague Valladares M.D. REQUESTING PHYSICIAN: Dima Armenta M.D. REASON FOR CONSULTATION: Urinary tract infection. HISTORY OF PRESENT ILLNESS: The patient is a 70-year-old female with past medical history of coronary artery disease, hypertension, diabetes, GERD, and dementia, who was brought into [facility] from halfway home for hypoxemia and low oxygen saturation. The patient was noted to have low O2 sats with sleep around 89% and then when awaken, oxygen rise up to 98% on room air. She did not have any fever or chills. No cough or shortness of breath. No chest pain. No nausea or vomiting. No diarrhea. In ED, the patient was noted to breath with neck extended and mouth wide open. She had oxygen level of 97% on room air. Chest x-ray did not show any acute infiltration or effusion. Urine analysis showed evidence of infection, so I was consulted by the primary provider for antibiotics recommendation. As of note, the patient is demented and cannot provide any history. History was mainly obtained from the medical record. PAST MEDICAL HISTORY: Significant for coronary artery disease, anemia, hypertension, diabetes, GERD, dementia, and multiple sclerosis. PAST SURGICAL HISTORY: Unable to obtain. MEDICATIONS: She is on Celexa, Klonopin, Ecotrin, Depakote, Aricept, Lopressor, Zyprexa, Risperidone, and cefepime. ALLERGIES: She is allergic to alcohol. SOCIAL HISTORY: She lives at a halfway facility. No recent drugs, tobacco, or alcohol. FAMILY HISTORY: Noncontributory. REVIEW OF SYSTEMS: Unable to obtain. The patient is demented. PHYSICAL EXAMINATION: GENERAL: An elderly female, demented, resting in bed, and not in distress. VITAL SIGNS: Temperature 97.5 degrees, pulse 67, respirations 20, blood pressure 124/63, and pulse ox 96% on room air. HEENT: Normocephalic and atraumatic. Pupils reactive to light equally. Moist oral mucosa. No exudate. NECK: Supple. No lymphadenopathy. CARDIOVASCULAR: Regular rate and rhythm. No murmur. LUNGS: Clear bilaterally. Diminished breathing sound on the bases. ABDOMEN: Soft, nontender, and nondistended. Positive bowel sounds. No hepatosplenomegaly. No ascites. EXTREMITIES: No edema. No cyanosis. LABORATORY DATA: Lab today white count 13.2, hemoglobin 12, hematocrit 37.4, and platelet count 204,000. BUN of 16 and creatinine of 0.6. AST of 12, ALT less than 5, and alkaline phosphatase 65. Urinalysis showed +3 leukocyte esterase, few bacteria, and +2 protein. IMAGING: Chest x-ray did not show any evidence of acute infiltrates or pleural effusion. ASSESSMENT AND PLAN: 1. Urinary tract infection. We will send urine for culture. Continue cefepime for now empirically. 2. Leukocytosis, suspect due to urinary tract infection and dehydration. Recommend hydration. We will monitor WBC. 3. Hypoxemia, suspect sleep apnea, may need sleep study to confirm. Pulmonary is following. 4. Diabetes. Recommend tight glycemic control to keep fasting sugar level less than 120 and pre-meals less than 130. Mague Valladares M.D. DR: BERENICE JOB#: [id number] CC:
[2016-02-11] MEDS ORDERED: Nitroglycerin Subl 0.4mg tab (Bottle Of 25) SL PRN (23:45)
[2016-02-12] VITALS: BP 109/69
[2016-02-12] MEDS ORDERED: DuoNeb 0.5-3(2.5)mg/3ml neb HHN PRN (00:45)
[2016-02-12] MEDS ORDERED: Mylanta II UD 30ml ORAL PRN (01:18)
[2016-02-12] MEDS ORDERED: Miralax 17gm pkt ORAL PRN (01:23)
[2016-02-12 04:00] VITALS: BP 94/59
[2016-02-12] MEDS: NovoLOG Insulin Flexpen SUBQ SCH ×4 (06:30→21:00)
[2016-02-12 08:00] VITALS: BP 97/55
--- NOTE | 2016-02-12 08:48 | History and Physical Report ---
DATE OF ADMISSION: 02/10/2016 HISTORY OF PRESENT ILLNESS: The patient is a relatively poor historian. The patient has morbid obesity. She comes in [facility]. The patient also is admitted for hypoxemia, dyspnea, leukocytosis, UTI, and possible dehydration and cannot get any from the patient. The patient does have shortness of breath. No nausea , vomiting, or diarrhea. No fever or chills. PAST MEDICAL HISTORY: MS, severe anxiety, borderline diabetes mellitus, anemia, borderline diabetes mellitus, GERD, psychosis disorder, constipation, dementia, and neuropathy. PAST SURGICAL HISTORY: in the past. MEDICATIONS: Vitamin C, Cogentin, Klonopin, Depakote for constipation, Aricept, Lasix, insulin, metoprolol, olanzapine, Risperidone, and Carafate. ALLERGIES: Alcohol. SOCIAL HISTORY: Denies history of smoking, alcohol, or illicit drugs. She lives in the prison. FAMILY HISTORY: Noncontributory. REVIEW OF SYSTEMS: HEENT: Denies headache. Respiratory: Reports shortness of breath. Denies cough. Cardiovascular: No chest pain. No JVD. . Denies orthopnea. Gastrointestinal: Denies nausea, vomiting, or diarrhea. Central Nervous System: Denies change in vision or speech pattern. PHYSICAL EXAMINATION: VITAL SIGNS: Temperature is 97 degrees, pulse 65, and blood pressure 129/68. HEENT: PERRLA. NECK: Supple. No lymphadenopathy. CHEST: Clear to auscultation. GASTROINTESTINAL: Soft, nondistended, and nontender. No organomegaly. Positive bowel sounds. EXTREMITIES: There is 1+ edema. The patient has morbid obesity. NEUROLOGIC: Reflexes are equal on both sides. She is bedbound. SKIN: For skin integrity, please refer to the nursing notes. LABORATORY AND DIAGNOSTIC DATA: Labs show WBC of 13.3, hemoglobin of 12, and platelets of 204,000. Sodium 137, potassium 3.9, BUN of 16, creatinine , and glucose 122. ASSESSMENT AND PLAN: 1. Dehydration. 2. Borderline saturations, hypoxia. 3. Urinary tract infection. 4. Severe anxiety. PLAN: I have asked Dr. Singh, Dr. Dillard, Dr. Klein, and Dr. Valladares to see the patient for the above-mentioned diagnoses and treatment. Dima Armenta M.D. DR: YAYA JOB#: [id number] CC:
[2016-02-12] MEDS: Aspirin EC 81mg tab ORAL SCH (08:51)
[2016-02-12] MEDS: Heparin 5000 units/ml inj SUBQ SCH ×2 (08:55→20:44)
[2016-02-12] MEDS: Metoprolol 25mg tab ORAL SCH ×2 (09:00→20:40)
[2016-02-12] MEDS ORDERED: Citalopram Hydrobromide 10 MG TAB ORAL SCH ×2 (09:00)
--- NOTE | 2016-02-12 10:47 | Consultation ---
DATE OF CONSULTATION: 02/11/2016 NOTE: "POOR AUDIO QUALITY" HEMATOLOGY/ONCOLOGY CONSULTATION CONSULTING PHYSICIAN: Maximo Richardson M.D. REQUESTING PHYSICIAN: Dima Armenta M.D. REASON FOR CONSULTATION: Evaluation and management of DVT. IDENTIFYING DATA: Dear Dr. Armenta: The patient is a pleasant 70-year-old female with a past medical history, which is significant for history of multiple UTIs, leukocytosis with history of GI bleed as well as chronic venous thrombosis, who presents to [facility] for shortness of breath and low oxygen as well as found at her [facility] facility. She was found to have saturation of 89% on room air. She was given nasal cannula, which improved. She is currently without deep breathing. Most recent Doppler showed evidence of chronic deep venous thrombosis. Hematology service was consulted for further evaluation and treatment. PAST MEDICAL HISTORY: The patient has had multiple UTIs, hypokalemia, hypoxemia, pneumonia history, leukocytosis, anemia of chronic disease, positive blood cultures. PAST SURGICAL HISTORY: None noted. MEDICATIONS: Vitamin C, Cogentin, Depakote, Colace, Neurontin, Lasix, . ALLERGIES: To alcohol. SOCIAL HISTORY: Denies any alcohol, tobacco, or illicit drug use. Lives in a custodial. FAMILY HISTORY: Noncontributory. REVIEW OF SYSTEMS: Constitutional: No fever, chills, or night sweats. Skin: No rashes, lumps, or itching. HEENT: No headache or vision changes. Breasts: No lumps, pain, or discharge. Pulmonary: No cough, sputum, or shortness of breath. Cardiovascular: No chest pain, tightness, or palpitations. Gastrointestinal: No nausea, vomiting, or diarrhea. Genitourinary: No dysuria, frequency, or urgency. Musculoskeletal: No joint swelling, muscle pain, or trauma. PHYSICAL EXAMINATION: GENERAL: VITAL SIGNS: Temperature 97.5 degrees Fahrenheit , pulse rate 67, respiratory rate of 20, blood pressure 124/83, and O2 saturation 96% on nasal cannula two liters. PULMONARY: Decreased breath sounds. CARDIOVASCULAR: Regular rate and rhythm. ABDOMEN: Soft, nontender, and nondistended. EXTREMITIES: There is 1+ edema. LABORATORY DATA: WBC 13.2, hemoglobin 12, hematocrit 37, and platelet count 249,000. BUN 16 and creatinine 0.4. Urine reviewed shows 2+ leukocyte esterase, few amorphous sediment. Serology, pending. ASSESSMENT: 1. Leukocytosis, probably secondary to underlying infection. 2. Upper gastrointestinal bleed history has resolved. 3. Anemia secondary to chronic disease, improved. 4. Deep venous thrombosis of the right lower extremity, does not require Coumadin at this time. 5. Constipation. 6. Anxiety. RECOMMENDATIONS: 1. Monitor counts and transfuse if hemoglobin less than 7.5. 2. We will obtain duplex of the lower extremities to confirm it is . 3. Antibiotics as needed. 4. We will follow up on p 5. Ulmonary recommendations. 6. DVT prophylaxis with heparin. 7. GI prophylaxis as needed. 8. Obtain peripheral smear. 9. Discussed with staff. Thank you, Dr. Dima Armenta, for this kind referral. Please do not hesitate to contact me with any further questions. Maximo Richardson M.D. DR: GISSELLE JOB#: [id number] CC:
[2016-02-12 12:00] VITALS: BP 115/63
[2016-02-12 20:00] VITALS: BP 124/74
[2016-02-12] MEDS ORDERED: Donepezil 10mg tab ORAL SCH (21:00)
[2016-02-13] VITALS: BP 119/61
[2016-02-13 04:00] VITALS: BP 153/75
[2016-02-13] MEDS: NovoLOG Insulin Flexpen SUBQ SCH ×4 (06:05→21:13)
[2016-02-13 08:00] VITALS: BP 131/74
[2016-02-13] MEDS: Metoprolol 25mg tab ORAL SCH ×2 (08:43→21:10)
[2016-02-13] MEDS: Aspirin EC 81mg tab ORAL SCH (08:44)
[2016-02-13] MEDS: Heparin 5000 units/ml inj SUBQ SCH ×2 (08:46→21:13)
--- NOTE | 2016-02-13 11:25 | General Progress Note ---
Assessment/Plan Assessment/Plan ASSESSMENT: 1. Leukocytosis, probably secondary to underlying infection. 2. Upper gastrointestinal bleed history has resolved. 3. Anemia secondary to chronic disease, improved. 4. Deep venous thrombosis of the right lower extremity, does not require Coumadin at this time given has recanalized 5. Constipation. 6. Anxiety. RECOMMENDATIONS: 1. Monitor counts and transfuse if hemoglobin less than 7.5. 2. We will obtain duplex of the lower extremities to confirm dvt has recanalized 3. Antibiotics as needed. 4. We will follow up on duplex 5. pulmonary recommendations. 6. DVT prophylaxis with heparin. 7. GI prophylaxis as needed. 8. Obtain peripheral smear. 9. Discussed with staff. Thank you, Maximo Richardson Subjective Date patient seen: Feb 12, 2016 Constitutional: Reports: no symptoms HEENT: Reports: no symptoms Cardiovascular: Reports: no symptoms Respiratory: Reports: no symptoms Gastrointestinal/Abdominal: Reports: poor appetite Genitourinary: Reports: no symptoms Neurologic/Psychiatric: Reports: no symptoms Endocrine: Reports: no symptoms Hematologic/Lymphatic: Reports: anemia Allergies: Coded Allergies: ALCOHOL (Verified Allergy, Unknown, 11/28/09) Subjective stable, no bleeding noted Objective Last 24 Hour Vital Signs Date Time Temp Pulse Resp B/P Pulse Ox O2 Delivery O2 Flow Rate FiO2 02/13/16 08:43 89 131/74 02/13/16 08:00 98.1 89 18 131/74 90 Room Air 02/13/16 04:00 97.5 83 18 153/75 93 Nasal Cannula 2.0 02/13/16 00:00 96.6 89 20 119/61 99 Nasal Cannula 2.0 02/12/16 20:40 82 115/63 02/12/16 20:00 98.6 99 16 124/74 95 Room Air 02/12/16 12:00 98.0 82 18 115/63 98 Nasal Cannula 2.0 Intake and Output 02/12/16 02/13/16 19:00 07:00 Intake Total 480 ml 120 ml Balance 480 ml 120 ml Intake Oral 480 ml 120 ml # Voids 5 2 Height (Feet): 5 Height (Inches): 6.00 Weight (Pounds): 165 General Appearance: no apparent distress EENT: TMs normal Neck: normal inspection Cardiovascular: regular rhythm Respiratory/Chest: lungs clear Abdomen: non tender Pelvis: normal rectal exam Extremities: non-tender Edema: 1+ Leg (L), 1+ Leg (R) Neurologic: alert Skin: warm/dry Maximo Richardson Feb 13, 2016 11:25
--- NOTE | 2016-02-13 11:44 | General Progress Note ---
Assessment/Plan Problem List: (1) Hypoxia ICD Codes: R09.02 - Hypoxemia SNOMED: 445415680, 00115343 (2) Sepsis ICD Codes: A41.9 - Sepsis, unspecified organism SNOMED: 06585493 (3) Diabetes ICD Codes: E11.9 - Type 2 diabetes mellitus without complications SNOMED: 05995334 (4) UTI (urinary tract infection) ICD Codes: N39.0 - Urinary tract infection, site not specified SNOMED: 42002606 (5) Multiple sclerosis ICD Codes: G35 - Multiple sclerosis SNOMED: 97243889 (6) Pneumonia ICD Codes: J18.9 - Pneumonia, unspecified organism SNOMED: 440777126 Status: progressing Assessment/Plan afebrile vitals stable uti and pna are improving reviewed chart and labs abx per id Subjective ROS Limited/Unobtainable: Yes Constitutional: Reports: no symptoms Allergies: Coded Allergies: ALCOHOL (Verified Allergy, Unknown, 11/28/09) Objective Last 24 Hour Vital Signs Date Time Temp Pulse Resp B/P Pulse Ox O2 Delivery O2 Flow Rate FiO2 02/13/16 08:43 89 131/74 02/13/16 08:00 98.1 89 18 131/74 90 Room Air 02/13/16 04:00 97.5 83 18 153/75 93 Nasal Cannula 2.0 02/13/16 00:00 96.6 89 20 119/61 99 Nasal Cannula 2.0 02/12/16 20:40 82 115/63 02/12/16 20:00 98.6 99 16 124/74 95 Room Air 02/12/16 12:00 98.0 82 18 115/63 98 Nasal Cannula 2.0 Intake and Output 02/12/16 02/13/16 19:00 07:00 Intake Total 480 ml 120 ml Balance 480 ml 120 ml Intake Oral 480 ml 120 ml # Voids 5 2 Height (Feet): 5 Height (Inches): 6.00 Weight (Pounds): 165 EENT: PERRL/EOMI Neck: supple Cardiovascular: normal rate Respiratory/Chest: lungs clear Abdomen: soft Dima Armenta MD Feb 13, 2016 11:44
[2016-02-13 12:00] VITALS: BP 125/61
--- NOTE | 2016-02-13 12:48 | Consultation ---
DATE OF CONSULTATION: HISTORY OF PRESENT ILLNESS: This is a 70-year-old female with a history of dementia, psychotic disorder, major depressive disorder, multiple sclerosis, has been admitted with chief complaint of distress with low oxygen saturation. During the evaluation patient, the patient appears to be in no acute distress however she was a poor historian and was unable to provide any history. He also is coming home on multiple psychotropic medications. He does endorse impairment of concentration and memory attention. There is no waxing and waning consciousness noted. No anxiety or agitation. PAST PSYCHIATRIC HISTORY: Diagnosed with depression, psychotic disorder, dementia, has been treated with Zyprexa, Celexa, and Aricept as well as Klonopin. No known history of violent behavior toward self or others. PAST MEDICAL HISTORY: Includes multiple sclerosis, anemia, borderline diabetes mellitus, constipation, neuropathy, gastroesophageal reflux disease. ALLERGIES: Alcohol. MEDICATION: At home Cogentin, vitamins C, Klonopin, Depakote, Aricept, Lasix, insulin, metoprolol, Lantus, and Risperdal. SUBSTANCE ABUSE HISTORY: No history of illicit drug use or alcohol. SOCIAL HISTORY: The patient resides in a residential. MENTAL STATUS EXAMINATION: The patient is alert and oriented x0. Mood is neutral. Affect is constricted. Congruent mood. Thought process, there is a paucity of thought content. Cognition is impaired. Insight and judgment non-existent. ASSESSMENT: Ashford I Psychotic disorder, major depressive disorder. Ashford II Deferred. Ashford III As above. Ashford IV Moderate. Ashford V Global assessment of functioning is 25. PLAN: 1. The patient's risperidone will be stopped. 2. Zyprexa to 5 mg at bedtime. 3. Discontinue . 4. Increase the Depakote to 250 mg by mouth at bedtime. 5. I will decrease the Klonopin to 1 mg every eight hours as needed for anxiety and agitation. Discontinue the citalopram. 6. Continue follow and readjust the medications. Kenna Dillard M.D. DR: FOREIGN JOB#: [id number] CC:
[2016-02-13 14:43] LABS: BASOPHILS % (AUTO) 0.9 % (0.0-2.0); EOSINOPHILS % (AUTO) 1.8 % (0.0-3.0); LYMPHOCYTES % (AUTO) 18.9 % (20.0-45.0); MEAN CORPUSCULAR HGB CONC 31.3 G/DL (32.0-36.0); MEAN CORPUSCULAR VOLUME 96 FL (80-99); MONOCYTES % (AUTO) 4.6 % (1.0-10.0); NEUTROPHILS % (AUTO) 73.8 % (45.0-75.0); PLATELET COUNT 242 K/UL (150-450); RED BLOOD COUNT 4.03 M/UL (4.20-5.40); RED CELL DISTRIBUTION WIDTH 13.5 % (11.6-14.8); WHITE BLOOD COUNT 10.4 K/UL (4.8-10.8)
--- NOTE | 2016-02-13 15:26 | Infectious Diseases Prog Note ---
Assessment/Plan Problems: (1) UTI (urinary tract infection) Assessment & Plan: await urine culture and continue cefepime for now (2) Leukocytosis Assessment & Plan: suspect due to UTI and dehydration, monitor WBC, recommend hydration (3) Hypoxemia Assessment & Plan: suspect sleep apnea, may need sleep study to confirm, pulmonary is following (4) Diabetes Assessment & Plan: recomment tight glycemic control to keep fasting less than 120 and premeal less than 130 Subjective ROS Limited/Unobtainable: Yes Allergies: Coded Allergies: ALCOHOL (Verified Allergy, Unknown, 11/28/09) Subjective she was up in bed, comfortable, not in distress, not agitated. Objective Vital Signs Last 24 Hour Vital Signs Date Time Temp Pulse Resp B/P Pulse Ox O2 Delivery O2 Flow Rate FiO2 02/13/16 12:00 98.4 69 18 125/61 92 Room Air 02/13/16 08:43 89 131/74 02/13/16 08:00 98.1 89 18 131/74 90 Room Air 02/13/16 04:00 97.5 83 18 153/75 93 Nasal Cannula 2.0 02/13/16 00:00 96.6 89 20 119/61 99 Nasal Cannula 2.0 02/12/16 20:40 82 115/63 02/12/16 20:00 98.6 99 16 124/74 95 Room Air Height (Feet): 5 Height (Inches): 6.00 Weight (Pounds): 165 General Appearance: WD/WN, no acute distress HEENT: normocephalic, atraumatic, anicteric, mucous membranes moist Respiratory/Chest: chest wall non-tender, lungs clear, normal breath sounds, no respiratory distress, no accessory muscle use Cardiovascular: normal peripheral pulses, normal rate, regular rhythm, no gallop/murmur Abdomen: normal bowel sounds, soft, non tender, no organomegaly, non distended , no mass, no scars Extremities: no cyanosis, no clubbing Skin: no rash, no lesions, ulcers Microbiology Date/Time Source Procedure Growth Status 02/10/16 15:50 Nasal Nares MRSA Culture - Final Staphylococcus Aureus - Mrsa Complete 02/11/16 10:55 Indwelling Cath Urine Culture - Final Mixed Urogenital Contaminants Complete 02/10/16 15:50 Rectum VRE Culture - Final NO VANCOMYCIN RESISTANT ENTEROCOCCUS ... Complete Laboratory Tests Test 02/13/16 14:15 White Blood Count 10.4 K/UL (4.8-10.8) Red Blood Count 4.03 M/UL (4.20-5.40) L Hemoglobin 12.1 G/DL (12.0-16.0) Hematocrit 38.7 % (37.0-47.0) Mean Corpuscular Volume 96 FL (80-99) Mean Corpuscular Hemoglobin 30.0 PG (27.0-31.0) Mean Corpuscular Hemoglobin Concent 31.3 G/DL (32.0-36.0) L Red Cell Distribution Width 13.5 % (11.6-14.8) Platelet Count 242 K/UL (150-450) Mean Platelet Volume 7.0 FL (6.5-10.1) Neutrophils (%) (Auto) 73.8 % (45.0-75.0) Lymphocytes (%) (Auto) 18.9 % (20.0-45.0) L Monocytes (%) (Auto) 4.6 % (1.0-10.0) Eosinophils (%) (Auto) 1.8 % (0.0-3.0) Basophils (%) (Auto) 0.9 % (0.0-2.0) Current Medications Medications (Trade) Dose Ordered Sig/Ivone Route PRN Reason Start Time Stop Time Status Last Admin Dose Admin Acetaminophen (Tylenol) 650 mg Q4H PRN ORAL fever 02/12/16 00:45 03/13/16 00:44 Al Hydroxide/Mg Hydroxide (Mylanta II) 30 ml Q6H PRN ORAL dyspepsia 02/12/16 01:18 03/13/16 01:17 Albuterol/ Ipratropium (DuoNeb 0.5-3(2.5)mg/3ml) 3 ml Q4H PRN HHN Shortness of Breath 02/12/16 00:45 02/17/16 00:44 Aspirin (Ecotrin) 81 mg DAILY ORAL 02/12/16 09:00 03/13/16 08:59 02/13/16 08:44 Clonazepam (KlonoPIN) 1 mg Q8H PRN ORAL AGITATION 02/13/16 00:00 02/20/16 00:00 Dextrose (Dextrose 50%) STAT PRN IV Hypoglycemia 02/12/16 01:19 03/13/16 01:18 Divalproex Sodium (Depakote) 250 mg BEDTIME ORAL 02/13/16 21:00 03/14/16 20:59 Gabapentin (Neurontin) 300 mg BID ORAL 02/12/16 09:00 03/13/16 08:59 02/13/16 08:43 Heparin Sodium (Porcine) (Heparin 5000 units/ml) 5,000 units EVERY 12 HOURS SUBQ 02/12/16 09:00 03/13/16 08:59 02/13/16 08:46 Insulin Aspart (NovoLOG) BEFORE MEALS AND HS SUBQ 02/12/16 06:30 03/13/16 06:29 02/12/16 17:25 Levofloxacin (Levaquin) 250 mg DAILY ORAL 02/13/16 16:00 02/20/16 15:59 Metoprolol Tartrate (Lopressor) 25 mg Q12HR ORAL 02/12/16 09:00 03/13/16 08:59 02/13/16 08:43 Mupirocin (Bactroban Oint) 1 applic THREE TIMES A DAY TOPIC 02/12/16 18:00 02/17/16 17:59 02/13/16 13:28 Nitroglycerin (Ntg) 0.4 mg Q5M X 3 DOSES PRN SL Prn Chest Pain 02/11/16 23:45 03/12/16 23:44 Olanzapine (ZyPREXA) 5 mg BEDTIME ORAL 02/13/16 21:00 03/14/16 20:59 Ondansetron HCl (Zofran) 4 mg Q6H PRN IVP Nausea & Vomiting 02/12/16 01:22 03/13/16 01:21 Polyethylene Glycol (Miralax) 17 gm DAILYPRN PRN ORAL Constipation 02/12/16 01:23 03/13/16 01:22 Temazepam (Restoril) 15 mg HSPRN PRN ORAL Insomnia 02/12/16 01:17 02/19/16 01:16 Mague Valladares M.D. Feb 13, 2016 15:26
[2016-02-13 16:00] VITALS: BP 112/60
--- NOTE | 2016-02-13 16:41 | Wound Care Consultation ---
Wound Assessment Wound Assessment : Wound Present on Admission: Yes New Wound: No Status Change of Wound: No Wound Location Body Site Modif: left Wound Location Body Site: ear - lobe Wound Type: scab Margarita Test: Does not Margarita Wound Thickness: Full Thickness Wound Length: 0.3 Wound Width: 0.5 Percent of Wound Filer/Red: 100 Wound Drainage Amount: Scant Wound Drainage Odor: None/Absent Tissue Surrounding Wound: Intact Wound General Appearance: Reddened Wound Comment #1 Left Ear lobe open wound with dry scab Recommendation -Cleanse Left ear lobe with saline, pat dry, apply adaptic, cover with 4x4 and secure with paper tape -Keep clean and dry -Turn and reposition -Optimize nutrition -Offload both heels -Assess and f/u accordingly for any changes SOPHIE MAR RN Feb 13, 2016 16:41
--- NOTE | 2016-02-13 16:41 | Pulmonology Progress Note ---
Assessment/Plan Problems: (1) Pneumonia (2) Anemia (3) Diabetes (4) Hypoxemia (5) Multiple sclerosis Assessment/Plan continue antibiotics respiratory treatment check sputum on cefepime f/u labs all meds reviewe dc planning Subjective ROS Limited/Unobtainable: Yes Interval Events: looks comfortable Allergies: Coded Allergies: ALCOHOL (Verified Allergy, Unknown, 11/28/09) Objective Last 24 Hour Vital Signs Date Time Temp Pulse Resp B/P Pulse Ox O2 Delivery O2 Flow Rate FiO2 02/13/16 16:00 98.1 79 20 112/60 91 Room Air 02/13/16 12:00 98.4 69 18 125/61 92 Room Air 02/13/16 08:43 89 131/74 02/13/16 08:00 98.1 89 18 131/74 90 Room Air 02/13/16 04:00 97.5 83 18 153/75 93 Nasal Cannula 2.0 02/13/16 00:00 96.6 89 20 119/61 99 Nasal Cannula 2.0 02/12/16 20:40 82 115/63 02/12/16 20:00 98.6 99 16 124/74 95 Room Air Intake and Output 02/12/16 02/13/16 19:00 07:00 Intake Total 480 ml 120 ml Balance 480 ml 120 ml Intake Oral 480 ml 120 ml # Voids 5 2 General Appearance: WD/WN HEENT: normocephalic, mucous membranes moist Respiratory/Chest: chest wall non-tender, lungs clear Cardiovascular: normal peripheral pulses, normal rate Abdomen: normal bowel sounds, soft, non tender Extremities: no clubbing Neurologic/Psychiatric: insulation blower II-XII grossly normal Lymphatic: no neck adenopathy Musculoskeletal: normal muscle bulk Microbiology Date/Time Source Procedure Growth Status 02/11/16 10:55 Indwelling Cath Urine Culture - Final Mixed Urogenital Contaminants Complete Laboratory Tests 02/13/16 14:15: White Blood Count 10.4, Red Blood Count 4.03L, Hemoglobin 12.1, Hematocrit 38.7 , Mean Corpuscular Volume 96, Mean Corpuscular Hemoglobin 30.0, Mean Corpuscular Hemoglobin Concent 31.3L, Red Cell Distribution Width 13.5, Platelet Count 242, Mean Platelet Volume 7.0, Neutrophils (%) (Auto) 73.8, Lymphocytes (%) (Auto) 18.9L, Monocytes (%) (Auto) 4.6, Eosinophils (%) (Auto) 1.8, Basophils (%) (Auto) 0.9 Current Medications Medications (Trade) Dose Ordered Sig/Ivone Route PRN Reason Start Time Stop Time Status Last Admin Dose Admin Acetaminophen (Tylenol) 650 mg Q4H PRN ORAL fever 02/12/16 00:45 03/13/16 00:44 Al Hydroxide/Mg Hydroxide (Mylanta II) 30 ml Q6H PRN ORAL dyspepsia 02/12/16 01:18 03/13/16 01:17 Albuterol/ Ipratropium (DuoNeb 0.5-3(2.5)mg/3ml) 3 ml Q4H PRN HHN Shortness of Breath 02/12/16 00:45 02/17/16 00:44 Aspirin (Ecotrin) 81 mg DAILY ORAL 02/12/16 09:00 03/13/16 08:59 02/13/16 08:44 Clonazepam (KlonoPIN) 1 mg Q8H PRN ORAL AGITATION 02/13/16 00:00 02/20/16 00:00 Dextrose (Dextrose 50%) STAT PRN IV Hypoglycemia 02/12/16 01:19 03/13/16 01:18 Divalproex Sodium (Depakote) 250 mg BEDTIME ORAL 02/13/16 21:00 03/14/16 20:59 Gabapentin (Neurontin) 300 mg BID ORAL 02/12/16 09:00 03/13/16 08:59 02/13/16 08:43 Heparin Sodium (Porcine) (Heparin 5000 units/ml) 5,000 units EVERY 12 HOURS SUBQ 02/12/16 09:00 03/13/16 08:59 02/13/16 08:46 Insulin Aspart (NovoLOG) BEFORE MEALS AND HS SUBQ 02/12/16 06:30 03/13/16 06:29 02/12/16 17:25 Levofloxacin (Levaquin) 250 mg DAILY ORAL 02/13/16 16:00 02/20/16 15:59 02/13/16 16:18 Metoprolol Tartrate (Lopressor) 25 mg Q12HR ORAL 02/12/16 09:00 03/13/16 08:59 02/13/16 08:43 Mupirocin (Bactroban Oint) 1 applic THREE TIMES A DAY TOPIC 02/12/16 18:00 02/17/16 17:59 02/13/16 13:28 Nitroglycerin (Ntg) 0.4 mg Q5M X 3 DOSES PRN SL Prn Chest Pain 02/11/16 23:45 03/12/16 23:44 Olanzapine (ZyPREXA) 5 mg BEDTIME ORAL 02/13/16 21:00 03/14/16 20:59 Ondansetron HCl (Zofran) 4 mg Q6H PRN IVP Nausea & Vomiting 02/12/16 01:22 03/13/16 01:21 Polyethylene Glycol (Miralax) 17 gm DAILYPRN PRN ORAL Constipation 02/12/16 01:23 03/13/16 01:22 Temazepam (Restoril) 15 mg HSPRN PRN ORAL Insomnia 02/12/16 01:17 02/19/16 01:16 GIGI WASSERMAN Feb 13, 2016 16:41
--- NOTE | 2016-02-13 18:56 | General Progress Note ---
Assessment/Plan Assessment/Plan ASSESSMENT: 1. Leukocytosis, probably secondary to underlying infection. 2. Upper gastrointestinal bleed history has resolved. 3. Anemia secondary to chronic disease, improved. 4. Deep venous thrombosis of right lower extremity, does not require Coumadin, has recanalized 5. Constipation. 6. Anxiety. RECOMMENDATIONS: 1. Monitor counts and transfuse if hemoglobin less than 7.5. 2. Pending duplex of the lower extremities to confirm dvt has recanalized 3. Antibiotics as needed 4. F/U on ID recs 5. F/U on Pulmonary recs 6. DVT prophylaxis with heparin. 7. GI prophylaxis as needed. 8. Obtain peripheral smear. 9. Discussed with staff. Thank you, Maximo Richardson MD Subjective Constitutional: Reports: no symptoms HEENT: Reports: no symptoms Cardiovascular: Reports: no symptoms Respiratory: Reports: no symptoms Gastrointestinal/Abdominal: Reports: poor appetite Genitourinary: Reports: no symptoms Neurologic/Psychiatric: Reports: no symptoms Endocrine: Reports: no symptoms Hematologic/Lymphatic: Reports: anemia Allergies: Coded Allergies: ALCOHOL (Verified Allergy, Unknown, 11/28/09) Subjective stable, no bleeding overnight Objective Last 24 Hour Vital Signs Date Time Temp Pulse Resp B/P Pulse Ox O2 Delivery O2 Flow Rate FiO2 02/13/16 16:00 98.1 79 20 112/60 91 Room Air 02/13/16 12:00 98.4 69 18 125/61 92 Room Air 02/13/16 08:43 89 131/74 02/13/16 08:00 98.1 89 18 131/74 90 Room Air 02/13/16 04:00 97.5 83 18 153/75 93 Nasal Cannula 2.0 02/13/16 00:00 96.6 89 20 119/61 99 Nasal Cannula 2.0 02/12/16 20:40 82 115/63 02/12/16 20:00 98.6 99 16 124/74 95 Room Air Intake and Output 02/12/16 02/13/16 19:00 07:00 Intake Total 480 ml 120 ml Balance 480 ml 120 ml Intake Oral 480 ml 120 ml # Voids 5 2 Laboratory Tests 02/13/16 14:15: White Blood Count 10.4, Red Blood Count 4.03L, Hemoglobin 12.1, Hematocrit 38.7 , Mean Corpuscular Volume 96, Mean Corpuscular Hemoglobin 30.0, Mean Corpuscular Hemoglobin Concent 31.3L, Red Cell Distribution Width 13.5, Platelet Count 242, Mean Platelet Volume 7.0, Neutrophils (%) (Auto) 73.8, Lymphocytes (%) (Auto) 18.9L, Monocytes (%) (Auto) 4.6, Eosinophils (%) (Auto) 1.8, Basophils (%) (Auto) 0.9 Height (Feet): 5 Height (Inches): 6.00 Weight (Pounds): 165 General Appearance: no apparent distress EENT: normal ENT inspection Neck: normal alignment Cardiovascular: normal rate Respiratory/Chest: normal breath sounds Abdomen: non tender Extremities: non-tender Edema: 1+ Leg (L), 1+ Leg (R) Edema: trace edema Neurologic: alert Skin: normal pigmentation Maximo Richardson Feb 13, 2016 18:56
[2016-02-13 19:00] VITALS: BP 115/66
[2016-02-14] VITALS: BP 138/78
[2016-02-14 04:00] VITALS: BP 134/71
[2016-02-14] MEDS: NovoLOG Insulin Flexpen SUBQ SCH ×2 (05:45→11:58)
[2016-02-14 08:00] VITALS: BP 146/70
[2016-02-14] MEDS: Aspirin EC 81mg tab ORAL SCH (08:21)
[2016-02-14] MEDS: Heparin 5000 units/ml inj SUBQ SCH (08:23)
[2016-02-14] MEDS: Metoprolol 25mg tab ORAL SCH (08:29)
--- NOTE | 2016-02-14 09:12 | General Progress Note ---
Assessment/Plan Assessment/Plan ASSESSMENT: 1. Leukocytosis, probably secondary to underlying infection. 2. Upper gastrointestinal bleed history has resolved. 3. Anemia secondary to chronic disease, improved. 4. Deep venous thrombosis of right lower extremity, no coumadin, has recanalized 5. Constipation. 6. Anxiety. RECOMMENDATIONS: 1. Monitor counts and transfuse if hemoglobin less than 7.5. 2. Pending duplex of the lower extremities to confirm dvt has recanalized 3. Antibiotics as needed 4. F/U on ID recs, Pulmonary recs 5. DVT prophylaxis with heparin. 6. GI prophylaxis as needed. 7. Obtain peripheral smear. 8. Discussed with staff. Thank you, Maximo Richardson MD Subjective Constitutional: Reports: no symptoms HEENT: Reports: no symptoms Cardiovascular: Reports: no symptoms Respiratory: Reports: no symptoms Gastrointestinal/Abdominal: Reports: poor appetite Genitourinary: Reports: no symptoms Neurologic/Psychiatric: Reports: no symptoms Endocrine: Reports: no symptoms Hematologic/Lymphatic: Reports: anemia Allergies: Coded Allergies: ALCOHOL (Verified Allergy, Unknown, 11/28/09) Subjective stable, no bleeding overnight, no fevers, no chills Objective Last 24 Hour Vital Signs Date Time Temp Pulse Resp B/P Pulse Ox O2 Delivery O2 Flow Rate FiO2 02/14/16 08:29 70 146/70 02/14/16 08:00 97.0 70 20 146/70 94 Room Air 02/14/16 04:00 97.4 73 18 134/71 91 Room Air 02/14/16 00:00 97.5 78 18 138/78 93 Room Air 02/13/16 21:10 80 115/66 02/13/16 19:00 97.5 80 20 115/66 92 Room Air 02/13/16 16:00 98.1 79 20 112/60 91 Room Air 02/13/16 12:00 98.4 69 18 125/61 92 Room Air Intake and Output 02/13/16 02/14/16 18:59 06:59 Intake Total 840 ml 120 ml Balance 840 ml 120 ml Intake Oral 840 ml 120 ml # Voids 4 Laboratory Tests 02/13/16 14:15: White Blood Count 10.4, Red Blood Count 4.03L, Hemoglobin 12.1, Hematocrit 38.7 , Mean Corpuscular Volume 96, Mean Corpuscular Hemoglobin 30.0, Mean Corpuscular Hemoglobin Concent 31.3L, Red Cell Distribution Width 13.5, Platelet Count 242, Mean Platelet Volume 7.0, Neutrophils (%) (Auto) 73.8, Lymphocytes (%) (Auto) 18.9L, Monocytes (%) (Auto) 4.6, Eosinophils (%) (Auto) 1.8, Basophils (%) (Auto) 0.9 Height (Feet): 5 Height (Inches): 6.00 Weight (Pounds): 165 General Appearance: no apparent distress EENT: TMs normal Neck: normal inspection Respiratory/Chest: no respiratory distress Abdomen: non tender Extremities: normal inspection Edema: 1+ Leg (L), 1+ Leg (R) Edema: mild edema Neurologic: alert Skin: warm/dry Maximo Richardson Feb 14, 2016 09:12
[2016-02-14] MEDS ORDERED: LEVAQUIN250 M1 ORAL (11:20)
[2016-02-14 12:00] VITALS: BP 119/71
--- NOTE | 2016-02-14 15:02 | General Progress Note ---
Assessment/Plan Problem List: (1) Hypoxia ICD Codes: R09.02 - Hypoxemia SNOMED: 485868553, 46508433 (2) Sepsis ICD Codes: A41.9 - Sepsis, unspecified organism SNOMED: 59386025 (3) Diabetes ICD Codes: E11.9 - Type 2 diabetes mellitus without complications SNOMED: 87332699 (4) UTI (urinary tract infection) ICD Codes: N39.0 - Urinary tract infection, site not specified SNOMED: 15349840 (5) Multiple sclerosis ICD Codes: G35 - Multiple sclerosis SNOMED: 60535112 (6) Pneumonia ICD Codes: J18.9 - Pneumonia, unspecified organism SNOMED: 643051186 Status: progressing Assessment/Plan hypoxia uti abx per id no wheezing obesity ms afebrile uti improved dc to snf Subjective ROS Limited/Unobtainable: Yes Constitutional: Reports: no symptoms Allergies: Coded Allergies: ALCOHOL (Verified Allergy, Unknown, 11/28/09) Objective Last 24 Hour Vital Signs Date Time Temp Pulse Resp B/P Pulse Ox O2 Delivery O2 Flow Rate FiO2 02/14/16 12:00 97.0 63 18 119/71 96 Room Air 02/14/16 08:29 70 146/70 02/14/16 08:00 97.0 70 20 146/70 94 Room Air 02/14/16 04:00 97.4 73 18 134/71 91 Room Air 02/14/16 00:00 97.5 78 18 138/78 93 Room Air 02/13/16 21:10 80 115/66 02/13/16 19:00 97.5 80 20 115/66 92 Room Air 02/13/16 16:00 98.1 79 20 112/60 91 Room Air Intake and Output 02/13/16 02/14/16 18:59 06:59 Intake Total 840 ml 120 ml Balance 840 ml 120 ml Intake Oral 840 ml 120 ml # Voids 4 Height (Feet): 5 Height (Inches): 6.00 Weight (Pounds): 165 EENT: PERRL/EOMI Neck: supple Cardiovascular: normal rate Respiratory/Chest: lungs clear Dima Armenta MD Feb 14, 2016 15:02
--- NOTE | 2016-02-14 17:15 | Infectious Diseases Prog Note ---
Assessment/Plan Problems: (1) UTI (urinary tract infection) Assessment & Plan: urine culture grew gram positive sharmila , received 7 days total of antibiotics will D/C today (2) Leukocytosis Assessment & Plan: improved , suspect due to UTI and dehydration (3) Hypoxemia Assessment & Plan: suspect sleep apnea, may need sleep study to confirm, pulmonary is following (4) Diabetes Assessment & Plan: recomment tight glycemic control to keep fasting less than 120 and premeal less than 130 Subjective ROS Limited/Unobtainable: Yes Allergies: Coded Allergies: ALCOHOL (Verified Allergy, Unknown, 11/28/09) Subjective she was up in bed, comfortable, not in distress, not agitated. Objective Vital Signs Last 24 Hour Vital Signs Date Time Temp Pulse Resp B/P Pulse Ox O2 Delivery O2 Flow Rate FiO2 02/14/16 12:00 97.0 63 18 119/71 96 Room Air 02/14/16 08:29 70 146/70 02/14/16 08:00 97.0 70 20 146/70 94 Room Air 02/14/16 04:00 97.4 73 18 134/71 91 Room Air 02/14/16 00:00 97.5 78 18 138/78 93 Room Air 02/13/16 21:10 80 115/66 02/13/16 19:00 97.5 80 20 115/66 92 Room Air Height (Feet): 5 Height (Inches): 6.00 Weight (Pounds): 165 General Appearance: WD/WN, no acute distress HEENT: normocephalic, atraumatic, anicteric, mucous membranes moist Respiratory/Chest: chest wall non-tender, lungs clear, normal breath sounds, no respiratory distress, no accessory muscle use Cardiovascular: normal peripheral pulses, normal rate, regular rhythm, no gallop/murmur Abdomen: normal bowel sounds, soft, non tender, no organomegaly, non distended , no mass, no scars Extremities: no cyanosis, no clubbing Skin: no rash, no lesions Mague Valladares M.D. Feb 14, 2016 17:15
--- NOTE | 2016-02-14 17:49 | Pulmonology Progress Note ---
Assessment/Plan Problems: (1) Pneumonia (2) Anemia (3) Diabetes (4) Hypoxemia (5) Multiple sclerosis Assessment/Plan continue antibiotics respiratory treatment check sputum on cefepime f/u labs all meds reviewe dc planning Subjective ROS Limited/Unobtainable: Yes Allergies: Coded Allergies: ALCOHOL (Verified Allergy, Unknown, 11/28/09) Objective Last 24 Hour Vital Signs Date Time Temp Pulse Resp B/P Pulse Ox O2 Delivery O2 Flow Rate FiO2 02/14/16 12:00 97.0 63 18 119/71 96 Room Air 02/14/16 08:29 70 146/70 02/14/16 08:00 97.0 70 20 146/70 94 Room Air 02/14/16 04:00 97.4 73 18 134/71 91 Room Air 02/14/16 00:00 97.5 78 18 138/78 93 Room Air 02/13/16 21:10 80 115/66 02/13/16 19:00 97.5 80 20 115/66 92 Room Air Intake and Output 02/13/16 02/14/16 19:00 07:00 Intake Total 840 ml 120 ml Balance 840 ml 120 ml Intake Oral 840 ml 120 ml # Voids 4 General Appearance: no acute distress HEENT: normocephalic, atraumatic, anicteric, PERRL Respiratory/Chest: chest wall non-tender, lungs clear, normal breath sounds, no respiratory distress Breasts: no masses Cardiovascular: normal peripheral pulses, normal rate, regular rhythm Abdomen: normal bowel sounds, soft, non tender, no organomegaly Genitourinary: normal external genitalia Extremities: no cyanosis Skin: no rash, no lesions Neurologic/Psychiatric: precision inspector II-XII grossly normal, alert, abnormal CN, motor weakness GIGI WASSERMAN Feb 14, 2016 17:49
--- NOTE | 2016-02-16 09:59 | Discharge Summary ---
Discharge Summary Hospital Course Date of Admission Feb 10, 2016 at 15:10 Date of Discharge Feb 14, 2016 at 15:44 Admitting Diagnosis HYPOXIA HPI Keysha Dahl is a 70 year old female who was admitted on Feb 10, 2016 at 15: 10 for Hypoxia Hospital Course [id number] Discharge Discharge Disposition Patient was discharged to SNF/Subacute Facility(03) Discharge Diagnoses: Jasmin Jerez NP Feb 16, 2016 09:59
--- NOTE | 2016-02-17 00:47 | Discharge Summary 2 SIG ---
DATE OF ADMISSION: 02/10/2016 DATE OF DISCHARGE: 02/14/2016 CONSULTANTS: 1. Gregor Klein M.D. 2. Mague Valladares M.D. 3. Maximo Richardson M.D. BRIEF HOSPITAL COURSE: The patient is a 70-year-old female, who [facility] in [facility] and was admitted for hypoxemia, dyspnea, leukocytosis, urinary tract infection, and possible dehydration. Dr. Klein was consulted. O2 saturation was 89% at ED. She was given IV antibiotics and respiratory treatment with sputum induction and chest physiotherapy. Dr. Valladares was also consulted. Urine culture grew gram positive sharmila. Unable to send sputum for culture. The patient was given cefepime. Dr. Richardson was also consulted. Venous Doppler studies showed evidence of chronic deep venous thrombosis. Dr. Dillard was also consulted and was diagnosed to have psychotic disorder with major depressive disorder. Risperidone was discontinued and was continued on Zyprexa. Depakote was increased to 250 mg at bedtime and Klonopin was decreased to 1 mg q.8 p.r.n. Citalopram discontinued. Breathing improved. Wound care nurse was consulted. The patient had an open wound with dry scab on the left earlobe. Wound care treatment was done. [facility] FINAL DIAGNOSES: 1. Pneumonia. 2. Urinary tract infection. 3. Diabetes mellitus. 4. Multiple sclerosis. 5. Anemia secondary to chronic disease. 6. Deep venous thrombosis of the right lower extremity, recanalized, no need for Coumadin. 7. Constipation. 8. Anxiety. 9. Psychotic disorder. 10. Major depressive disorder. 11. Left earlobe open wound with dry scab, present on admission. Dima Armenta M.D. I have been assigned to dictate discharge summary on this account and I was not involved in the patient's management. Louie HerbertP. DR: EUSEBIO JOB#: [id number] CC: COMFORT
--- NOTE | 2016-02-19 10:32 | Cardiology Report ---
APPROVED REPORT EKG Measurement Heart [id number] Normal sinus rhythm Left axis deviation Abnormal ECG
--- NOTE | 2016-02-21 22:35 | Diagnostic Imaging Report ---
APPROVED REPORT CPT Code: 73747 Present Symptoms Lower Extremity Pain: Bilateral BILATERAL: Imaging reveals a patent deep venous system bilaterally. There is no evidence of thrombus within the femoral, popliteal or tibial segments. The greater saphenous veins are also within normal limits. Doppler indicates normal spontaneous flow within these segments.
== END 2016-02-14 15:44 | DRG 194 ==
LOC: EDBD 14:16 → EMR 15:05 → 2E 15:10 → EDBEDREQ 16:30 → 4E 02-12 00:10
DX: J18.9 Pneumonia, unspecified organism (principal); N39.0 Urinary tract infection, site not specified; I82.501 Chronic embolism and thrombosis of unspecified deep veins of right lower extremity; E66.01 Morbid (severe) obesity due to excess calories; E11.9 Type 2 diabetes mellitus without complications; D63.8 Anemia in other chronic diseases classified elsewhere; G35 Multiple sclerosis; K59.00 Constipation, unspecified; F41.9 Anxiety disorder, unspecified; F29 Unspecified psychosis not due to a substance or known physiological condition; F32.9 Major depressive disorder, single episode, unspecified; S01.302A Unspecified open wound of left ear, initial encounter; X58.XXXA Exposure to other specified factors, initial encounter; K21.9 Gastro-esophageal reflux disease without esophagitis; Z79.4 Long term (current) use of insulin; G62.9 Polyneuropathy, unspecified
CPT/HCPCS: 36415; 71010; 80053; 81003; 82164; 82553; 82962; 84484; 85025; 87081; 87086; 93005; 93970; J1815

== ENCOUNTER 2017-11-20 18:35 | Inpatient (IN) | payer MEDICARE, OTHER ==
[~2017-11-20] VITALS: Ht 162.6 cm; Wt 88.0 kg
[~2017-11-20 18:35] MED LIST changes: +ATARAX25 MG ORAL; +GERI-TUSSI100 MG/5 M PO; +IPRATROPIU0.2 MG/1 M HHN; +KLONOPIN1 MG ORAL; +LEVAQUIN250 M1 ORAL; +MILK OF MA400 MG/51 ORAL; +NUEDEXTA 20-101 EAC1 PO; +UTI-STAT L3875 MG/31 PO
[2017-11-20 19:33] LABS: APPEARANCE,URINE CLOUDY; BILIRUBIN, URINE NEGATIVE (NEGATIVE); COLOR,URINE YELLOW; GLUCOSE, URINE (UA) NEGATIVE (NEGATIVE); KETONES,URINE 1+ (NEGATIVE); LEUKOCYTE ESTERASE ,URINE 3+ (NEGATIVE); NITRITE,URINE POSITIVE (NEGATIVE); PH,URINE 6 (4.5-8.0); PROTEIN,URINE 1+ (NEGATIVE); UROBILINOGEN,URINE NORMAL MG/DL (0.0-1.0)
[2017-11-20 19:42] LABS: BASOPHILS % (AUTO) 0.9 % (0.0-2.0); EOSINOPHILS % (AUTO) 2.2 % (0.0-3.0); HEMATOCRIT 33.1 % (37.0-47.0); HEMOGLOBIN 11.4 G/DL (12.0-16.0); LYMPHOCYTES % (AUTO) 19.2 % (20.0-45.0); MEAN CORPUSCULAR VOLUME 93 FL (80-99); MONOCYTES % (AUTO) 5.2 % (1.0-10.0); NEUTROPHILS % (AUTO) 72.5 % (45.0-75.0); PLATELET COUNT 200 K/UL (150-450); RED BLOOD COUNT 3.56 M/UL (4.20-5.40); RED CELL DISTRIBUTION WIDTH 12.3 % (11.6-14.8); WHITE BLOOD COUNT 10.1 K/UL (4.8-10.8)
[2017-11-20 19:48] LABS: ANION GAP 6 mmol/L (5-15); BLOOD UREA NITROGEN 26 mg/dL (7-18); CALCIUM 8.5 MG/DL (8.5-10.1); CARBON DIOXIDE 29 MMOL/L (21-32); CHLORIDE 105 MMOL/L (98-107); CREATININE 0.7 MG/DL (0.55-1.30); POTASSIUM 4.3 MMOL/L (3.5-5.1); SODIUM 140 MMOL/L (136-145)
--- NOTE | 2017-11-20 19:50 | Emergency Room Report ---
History of Present Illness General Chief Complaint: Behavioral Complaint Source: Patient (Toma Mcnally) Present Illness HPI 72-year-old female [facility] for [facility] change. Patient has been acting altered in comparison to her normal baseline which is somewhat confused. Patient denies pain, she denies cough she denies fevers or chills. History and ROS is limited due to patient being a poor historian. Per [facility] documentation; Hx of MS, neuropathy, behavioral disorder, depression, anxiety and Parkinson's just to name a few. (Toma Mcnally) Allergies: Coded Allergies: ALCOHOL (Verified Allergy, Unknown, 11/28/09) FISH CONTAINING PRODUCTS (Verified Allergy, Unknown, Hives, 11/21/17) Patient History Past Medical History: see triage record Past Surgical History: none Pertinent Family History: none Now: No Reviewed Nursing Documentation: PMH: Agreed; PSxH: Agreed (Toma Mcnally) Nursing Documentation-PMH Past Medical History: No History, Except For Hx Cardiac Problems: Yes - anemia Hx Hypertension: Yes Hx Diabetes: Yes Hx Cancer: No Hx Gastrointestinal Problems: Yes - gerd Hx Neurological Problems: Yes - multpile sclerosis, schizoprenia Hx Dementia: Yes Hx Multiple Sclerosis: Yes (Toma Mcnally) Review of Systems All Other Systems: negative except mentioned in HPI (Toma Mcnally) Physical Exam Vital Signs Date Time Temp Pulse Resp B/P (MAP) Pulse Ox O2 Delivery O2 Flow Rate FiO2 11/20/17 18:19 98.0 63 20 102/65 97 Room Air 98.1 Sp02 EP Interpretation: reviewed, normal General Appearance: no apparent distress, alert, GCS 15, non-toxic Head: normocephalic, atraumatic Eyes: bilateral eye normal inspection, bilateral eye PERRL ENT: hearing grossly normal, normal voice Neck: full range of motion Respiratory: chest non-tender, lungs clear, normal breath sounds, no wheezing, speaking full sentences Cardiovascular #1: regular rate, rhythm, no edema Gastrointestinal: normal bowel sounds, non tender, soft Musculoskeletal: back normal, normal range of motion, non-tender Neurologic: alert, responsive, motor strength/tone normal, sensory intact, speech normal, grossly normal Psychiatric: judgement/insight normal, mood/affect normal Skin: normal color, no rash, warm/dry, well hydrated (Toma Mcnally) Medical Decision Making PA Attestation Dr. Caldwell is my supervising Physician whom patient management has been discussed with. (Toma Mcnally) Diagnostic Impression: Primary Impression: UTI (urinary tract infection) Qualified Codes: N30.01 - Acute cystitis with hematuria ER Course 72-year-old female [facility]. Patient has been acting altered in comparison to her normal baseline which is somewhat confused. Patient denies pain, she denies cough she denies fevers or chills. History and ROS is limited due to patient being a poor historian. Per [facility] documentation; Hx of MS, neuropathy, behavioral disorder, depression, anxiety and Parkinson's just to name a few. Ddx considered but are not limited to Abscess, pneumonia, UTI, psychiatric condition, dementia just to name a few Vital signs: are WNL, pt. is afebrile H&PE are most consistent with ORDERS: -CBC: unremarkable -CMP: elevated BUn otherwise unremarkable -Lactic Acid: 1.1 - Troponin: 0.00 -CK: unremarkable - Blood Cultures -UA: POSITIVE FOR UTI- Nitrite positive with presence of bacteria -CXR: elevated right hemidiaphragm. ED INTERVENTIONS: -1G Rocephin IV DISPOSITION: at this time pt. will be admitted to Dr. Hassan for UTI. Dr. Hassan agreed to admit the pt. and to continue pt. care management. Labs Test 11/20/17 19:15 11/20/17 19:18 Urine Color Yellow Urine Appearance Cloudy Urine pH 6 (4.5-8.0) Urine Specific [place] 1.015 (1.005-1.035) Urine Protein 1+ (NEGATIVE) Urine Glucose (UA) Negative (NEGATIVE) Urine Ketones 1+ (NEGATIVE) Urine Blood 1+ (NEGATIVE) Urine Nitrite Positive (NEGATIVE) Urine Bilirubin Negative (NEGATIVE) Urine Urobilinogen Normal MG/DL (0.0-1.0) Urine Leukocyte Esterase 3+ (NEGATIVE) Urine RBC 2-4 /HPF (0 - 2) Urine WBC Tntc /HPF (0 - 2) Urine Squamous Epithelial Cells Many /LPF (NONE/OCC) Urine Bacteria Many /HPF (NONE) White Blood Count 10.1 K/UL (4.8-10.8) Red Blood Count 3.56 M/UL (4.20-5.40) Hemoglobin 11.4 G/DL (12.0-16.0) Hematocrit 33.1 % (37.0-47.0) Mean Corpuscular Volume 93 FL (80-99) Mean Corpuscular Hemoglobin 32.0 PG (27.0-31.0) Mean Corpuscular Hemoglobin Concent 34.4 G/DL (32.0-36.0) Red Cell Distribution Width 12.3 % (11.6-14.8) Platelet Count 200 K/UL (150-450) Mean Platelet Volume 7.9 FL (6.5-10.1) Neutrophils (%) (Auto) 72.5 % (45.0-75.0) Lymphocytes (%) (Auto) 19.2 % (20.0-45.0) Monocytes (%) (Auto) 5.2 % (1.0-10.0) Eosinophils (%) (Auto) 2.2 % (0.0-3.0) Basophils (%) (Auto) 0.9 % (0.0-2.0) Sodium Level 140 MMOL/L (136-145) Potassium Level 4.3 MMOL/L (3.5-5.1) Chloride Level 105 MMOL/L (98-107) Carbon Dioxide Level 29 MMOL/L (21-32) Anion Gap 6 mmol/L (5-15) Blood Urea Nitrogen 26 mg/dL (7-18) Creatinine 0.7 MG/DL (0.55-1.30) Estimat Glomerular Filtration Rate mL/min (>60) Glucose Level 90 MG/DL (74-106) Lactic Acid Level 1.10 mmol/L (0.4-2.0) Calcium Level 8.5 MG/DL (8.5-10.1) Total Bilirubin 0.2 MG/DL (0.2-1.0) Aspartate Amino Transf (AST/SGOT) 7 U/L (15-37) Alanine Aminotransferase (ALT/SGPT) 12 U/L (12-78) Alkaline Phosphatase 77 U/L (46-116) Total Creatine Kinase 38 U/L (26-308) Troponin I 0.000 ng/mL (0.000-0.056) Total Protein 7.2 G/DL (6.4-8.2) Albumin 3.0 G/DL (3.4-5.0) Globulin 4.2 g/dL Albumin/Globulin Ratio 0.7 (1.0-2.7) (Toma Mcnally) ER Course The patient presented for altered mental status. Differential diagnosis included was not limited to urinary tract infection, multiple sclerosis exacerbation, sepsis, psychosis among others.Because of complexity of patient's case laboratory testing and imaging studies were ordered. The patient was noted to have evidence of urinary tract infection. The patient was discussed with Dr. Dima Armenta who agreed to admit the patient due to altered mental status and urinary infection. Labs Test 11/20/17 19:15 11/20/17 19:18 11/21/17 05:35 Urine Color Yellow Urine Appearance Cloudy Urine pH 6 (4.5-8.0) Urine Specific [place] 1.015 (1.005-1.035) Urine Protein 1+ (NEGATIVE) Urine Glucose (UA) Negative (NEGATIVE) Urine Ketones 1+ (NEGATIVE) Urine Blood 1+ (NEGATIVE) Urine Nitrite Positive (NEGATIVE) Urine Bilirubin Negative (NEGATIVE) Urine Urobilinogen Normal MG/DL (0.0-1.0) Urine Leukocyte Esterase 3+ (NEGATIVE) Urine RBC 2-4 /HPF (0 - 2) Urine WBC Tntc /HPF (0 - 2) Urine Squamous Epithelial Cells Many /LPF (NONE/OCC) Urine Bacteria Many /HPF (NONE) Lactic Acid Level 1.10 mmol/L (0.4-2.0) Total Creatine Kinase 38 U/L (26-308) Troponin I 0.000 ng/mL (0.000-0.056) White Blood Count 8.2 K/UL (4.8-10.8) Red Blood Count 3.67 M/UL (4.20-5.40) Hemoglobin 11.5 G/DL (12.0-16.0) Hematocrit 34.6 % (37.0-47.0) Mean Corpuscular Volume 94 FL (80-99) Mean Corpuscular Hemoglobin 31.3 PG (27.0-31.0) Mean Corpuscular Hemoglobin Concent 33.2 G/DL (32.0-36.0) Red Cell Distribution Width 12.7 % (11.6-14.8) Platelet Count 184 K/UL (150-450) Mean Platelet Volume 8.0 FL (6.5-10.1) Neutrophils (%) (Auto) 68.5 % (45.0-75.0) Lymphocytes (%) (Auto) 22.2 % (20.0-45.0) Monocytes (%) (Auto) 5.7 % (1.0-10.0) Eosinophils (%) (Auto) 2.9 % (0.0-3.0) Basophils (%) (Auto) 0.8 % (0.0-2.0) Sodium Level 143 MMOL/L (136-145) Potassium Level 3.9 MMOL/L (3.5-5.1) Chloride Level 105 MMOL/L (98-107) Carbon Dioxide Level 30 MMOL/L (21-32) Anion Gap 8 mmol/L (5-15) Blood Urea Nitrogen 21 mg/dL (7-18) Creatinine 0.5 MG/DL (0.55-1.30) Estimat Glomerular Filtration Rate mL/min (>60) Glucose Level 84 MG/DL (74-106) Calcium Level 8.6 MG/DL (8.5-10.1) Total Bilirubin 0.3 MG/DL (0.2-1.0) Aspartate Amino Transf (AST/SGOT) 7 U/L (15-37) Alanine Aminotransferase (ALT/SGPT) 15 U/L (12-78) Alkaline Phosphatase 75 U/L (46-116) Total Protein 7.2 G/DL (6.4-8.2) Albumin 3.0 G/DL (3.4-5.0) Globulin 4.2 g/dL Albumin/Globulin Ratio 0.7 (1.0-2.7) (Mick Caldwell MD) EKG Diagnostic Results EP Interpretation: Dr. Caldwell Rate: normal - 65 BPM Rhythm: NSR ST Segments: no acute changes ASA given to the pt in ED: No PA Scribe Text This Interpretation was scribed by SHIRLENE Mcnally. (Toma Mcnally) Chest X-Ray Diagnostic Results Chest X-Ray Diagnostic Results : Chest X-Ray Ordered: Yes # of Views/Limited/Complete: 1 View Indication: Chest Pain EP Interpretation: Yes PA Xray: Interpretation reviewed, by supervising MD, and agrees with findings. Interpretation: no consolidation, no effusion, no pneumothorax, other - elevated right hemidiaphragm. Impression: Other - abnormal Electronically Signed by: Toma Mcnally PA-C (Toma Mcnally) Last Vital Signs Date Time Temp Pulse Resp B/P (MAP) Pulse Ox O2 Delivery O2 Flow Rate FiO2 11/20/17 18:19 98.0 63 20 102/65 97 Room Air 98.1 (Toma Mcnally) Status: unchanged (Mick Caldwell MD) Disposition: ADMITTED INPATIENT Condition: Serious Referrals: Dima Armenta MD (PCP) Toma Mcnally Nov 20, 2017 19:50 Mick Caldwell MD Nov 21, 2017 13:41
[2017-11-20 19:54] LABS: ALANINE AMINOTRANSFERASE 12 U/L (12-78); ALBUMIN/GLOBULIN RATIO 0.7 (1.0-2.7); ALKALINE PHOSPHATASE 77 U/L (46-116); ASPARTATE AMINO TRANSFERASE 7 U/L (15-37); BILIRUBIN,TOTAL 0.2 MG/DL (0.2-1.0); CREATINE KINASE 38 U/L (26-308)
[2017-11-20] MEDS ORDERED: cefTRIAXone 1 GM in NS 55 ML IVPB ONE (20:00)
[2017-11-20 20:32] VITALS: BP 114/69
[2017-11-20 21:45] VITALS: BP 96/57
--- NOTE | 2017-11-20 23:33 | Consultation ---
History of Present Illness General Chief Complaint: Behavioral Complaint Present Illness HPI 72-year-old female presents to the emergency room due to ams and agitation the pt found to have uti. the pt has cognitive impairment and is easily agitated the pt has impairment of cognition and waxing and waning of consciousness Allergies: Coded Allergies: ALCOHOL (Verified Allergy, Unknown, 11/28/09) FISH CONTAINING PRODUCTS (Verified Allergy, Unknown, Hives, 11/21/17) Medication History Scheduled Ascorbic Acid* (Ascorbic Acid*), 500 MG ORAL BID, (Reported) Aspirin* (Aspir 81*), 81 MG ORAL DAILY, (Reported) Benztropine Mesylate (Cogentin 1mg*), 1 MG PO BID, (Reported) Benztropine Mesylate* (Cogentin*), 1 MG PO BID, (Reported) Citalopram Hydrobromide* (Celexa*), 5 MG PO EVERY OTHER DAY, (Reported) Clonazepam* (Klonopin*), 1 MG ORAL Q6H, (Reported) Cran/Vitc/Mannose/Inulin/Brom (Uti-Stat Liquid), 3,875 MG PO DAILY, (Reported) Cranberry (Cranberry), 1 TAB PO BID, (Reported) Dextromethorphan Hbr/Quinidine (Nuedexta 20-10 Mg Capsule), 1 EACH PO BID, ( Reported) Divalproex Sodium* (Depakote*), 250 MG PO Q12HR, (Reported) Docusate Sodium* (Colace*), 100 MG ORAL DAILY, (Reported) Donepezil Hcl* (Aricept*), 10 MG ORAL BEDTIME, (Reported) Ertapenem Sodium* (INVanz*), 1 GM IVPB Q24H, (Reported) Furosemide* (Lasix*), 20 MG ORAL DAILY, (Reported) Gabapentin (Neurontin), 300 MG PO BID, (Reported) Gabapentin (Neurontin), 300 MG ORAL THREE TIMES A DAY, (Reported) Guaifenesin (Denise-Tussin), 100 MG PO EVERY 6 HOURS, (Reported) Heparin Sod (Porcine) (Heparin Sodium*), 5,000 UNITS SUBQ BID, (Reported) Heparin Sodium,Porcine/Pf (Heparin Sod 1,000 Unit/Ml Vial), 5,000 UNIT SUBQ Q12HR, (Reported) Hydroxyzine HCl (Hydroxyzine HCl), 25 MG ORAL FOUR TIMES A DAY, (Reported) Insulin Regular, Human* (Novolin R*), 0 SUBQ .SLIDING SCALE, (Reported) Levofloxacin* (Levaquin*), 250 MG ORAL DAILY, (Reported) Magnesium Hydroxide* (Milk Of Magnesia*), 30 ML ORAL DAILY, (Reported) Metoprolol Tartrate* (Metoprolol Tartrate*), 25 MG ORAL Q12HR, (Reported) Multivitamin (Multi Vitamin Daily), 1 EACH PO DAILY, (Reported) Olanzapine* (Zyprexa*), 5 MG ORAL BID, (Reported) Omeprazole (Omeprazole), 20 MG ORAL ACBREAKFAST, (Reported) Ranitidine Hcl* (Zantac*), 150 MG ORAL BEDTIME, (Reported) Risperidone* (Risperdal*), 2 MG ORAL THREE TIMES A DAY, (Reported) Sucralfate* (Carafate*), 1 GM ORAL AC, (Reported) Scheduled PRN Acetaminophen (Acetaminophen), 650 MG ORAL Q4H PRN for Mild Pain/Temp > 100.5, ( Reported) Acetaminophen/Hydrocodone 7.5/750 (Vicodin Es), 1 TAB ORAL Q4HR PRN for Moderate Pain (Pain Scale 4-6), (Reported) Ipratropium Frakes 0.5MG/2.5ML (Ipratropium Frakes 0.5MG/2.5ML), 0.5 MG HHN EVERY 4 HOURS PRN for Shortness of Breath, (Reported) Lorazepam* (Ativan*), 0.25 MG ORAL BID PRN for For Anxiety, (Reported) Patient History Limited by: medical condition History Provided By: Patient, Medical Record, PMD Healthcare decision maker Resuscitation status Advanced Directive on File Yes Past Medical/Surgical History Past Medical/Surgical History: (1) Fever (2) Troponin I above reference range (3) Hypokalemia (4) Positive blood culture (5) Hypoxemia (6) Leukocytosis (7) Diabetes (8) Anemia (9) Multiple sclerosis (10) Respiratory failure (11) Pneumonia (12) Sepsis (13) UTI (urinary tract infection) (14) Altered mental status Review of Systems Psychiatric: Reports: anxiety, depressed feelings, emotional problems Physical Exam General Appearance: no apparent distress, alert, confused, agitated Last 24 Hour Vital Signs Date Time Temp Pulse Resp B/P (MAP) Pulse Ox O2 Delivery O2 Flow Rate FiO2 11/20/17 21:45 97.6 68 20 96/57 (70) 98 97.6 11/20/17 21:40 98.1 98 20 114/69 99 Room Air 98.1 11/20/17 20:32 98.1 98 20 114/69 99 Room Air 98.1 11/20/17 18:19 98.0 63 20 102/65 97 Room Air 98.1 Laboratory Tests Test 11/20/17 19:15 11/20/17 19:18 Urine Color Yellow Urine Appearance Cloudy Urine pH 6 (4.5-8.0) Urine Specific [place] 1.015 (1.005-1.035) Urine Protein 1+ (NEGATIVE) H Urine Glucose (UA) Negative (NEGATIVE) Urine Ketones 1+ (NEGATIVE) H Urine Blood 1+ (NEGATIVE) H Urine Nitrite Positive (NEGATIVE) H Urine Bilirubin Negative (NEGATIVE) Urine Urobilinogen Normal MG/DL (0.0-1.0) Urine Leukocyte Esterase 3+ (NEGATIVE) H Urine RBC 2-4 /HPF (0 - 2) H Urine WBC Tntc /HPF (0 - 2) H Urine Squamous Epithelial Cells Many /LPF (NONE/OCC) H Urine Bacteria Many /HPF (NONE) H White Blood Count 10.1 K/UL (4.8-10.8) Red Blood Count 3.56 M/UL (4.20-5.40) L Hemoglobin 11.4 G/DL (12.0-16.0) L Hematocrit 33.1 % (37.0-47.0) L Mean Corpuscular Volume 93 FL (80-99) Mean Corpuscular Hemoglobin 32.0 PG (27.0-31.0) H Mean Corpuscular Hemoglobin Concent 34.4 G/DL (32.0-36.0) Red Cell Distribution Width 12.3 % (11.6-14.8) Platelet Count 200 K/UL (150-450) Mean Platelet Volume 7.9 FL (6.5-10.1) Neutrophils (%) (Auto) 72.5 % (45.0-75.0) Lymphocytes (%) (Auto) 19.2 % (20.0-45.0) L Monocytes (%) (Auto) 5.2 % (1.0-10.0) Eosinophils (%) (Auto) 2.2 % (0.0-3.0) Basophils (%) (Auto) 0.9 % (0.0-2.0) Sodium Level 140 MMOL/L (136-145) Potassium Level 4.3 MMOL/L (3.5-5.1) Chloride Level 105 MMOL/L (98-107) Carbon Dioxide Level 29 MMOL/L (21-32) Anion Gap 6 mmol/L (5-15) Blood Urea Nitrogen 26 mg/dL (7-18) H Creatinine 0.7 MG/DL (0.55-1.30) Estimat Glomerular Filtration Rate mL/min (>60) Glucose Level 90 MG/DL (74-106) Lactic Acid Level 1.10 mmol/L (0.4-2.0) Calcium Level 8.5 MG/DL (8.5-10.1) Total Bilirubin 0.2 MG/DL (0.2-1.0) Aspartate Amino Transf (AST/SGOT) 7 U/L (15-37) L Alanine Aminotransferase (ALT/SGPT) 12 U/L (12-78) Alkaline Phosphatase 77 U/L (46-116) Total Creatine Kinase 38 U/L (26-308) Troponin I 0.000 ng/mL (0.000-0.056) Total Protein 7.2 G/DL (6.4-8.2) Albumin 3.0 G/DL (3.4-5.0) L Globulin 4.2 g/dL Albumin/Globulin Ratio 0.7 (1.0-2.7) L Height (Feet): 5 Height (Inches): 4.00 Weight (Pounds): 194 Assessment/Plan Assessment/Plan encephalopathy due to [facility] UTI -the pt will started on antipsychotic -the pt will be started on mood stabilizer -Kenna Simmons MD Nov 20, 2017 23:33
[2017-11-20] MEDS ORDERED: LORazepam 1mg tab ORAL PRN (23:45)
[2017-11-21] VITALS: BP 116/60
[2017-11-21] MEDS ORDERED: Guaifenesin/DM 10ml syrup ORAL PRN (02:00)
[2017-11-21] MEDS ORDERED: HydrOXYzine tab 25mg tab ORAL PRN (02:00)
[2017-11-21] MEDS ORDERED: HYDROcodone/Acetamin 7.5/325 tab ORAL PRN (02:00)
[2017-11-21] MEDS ORDERED: Ipratropium 0.02% Inh Soln 2.5ml UD HHN PRN (02:00)
[2017-11-21] MEDS ORDERED: Milk of Magnesia 30ml Ud ORAL PRN (02:00)
[2017-11-21] MEDS ORDERED: NEURONTIN300 MG ORAL (02:26)
[2017-11-21] MEDS ORDERED: BENZTROPINE ME0.5 MG PO (02:26)
[2017-11-21] MEDS ORDERED: HEPARIN SO5000 UNIT2 SUBQ (02:28)
[2017-11-21] MEDS ORDERED: ZANTAC150 MG ORAL (02:28)
[2017-11-21 04:00] VITALS: BP 102/62
[2017-11-21 06:43] LABS: BASOPHILS % (AUTO) 0.8 % (0.0-2.0); EOSINOPHILS % (AUTO) 2.9 % (0.0-3.0); HEMATOCRIT 34.6 % (37.0-47.0); HEMOGLOBIN 11.5 G/DL (12.0-16.0); LYMPHOCYTES % (AUTO) 22.2 % (20.0-45.0); MEAN CORPUSCULAR VOLUME 94 FL (80-99); MONOCYTES % (AUTO) 5.7 % (1.0-10.0); NEUTROPHILS % (AUTO) 68.5 % (45.0-75.0); PLATELET COUNT 184 K/UL (150-450); RED BLOOD COUNT 3.67 M/UL (4.20-5.40); RED CELL DISTRIBUTION WIDTH 12.7 % (11.6-14.8); WHITE BLOOD COUNT 8.2 K/UL (4.8-10.8)
[2017-11-21 07:02] LABS: ALANINE AMINOTRANSFERASE 15 U/L (12-78); ALBUMIN/GLOBULIN RATIO 0.7 (1.0-2.7); ALKALINE PHOSPHATASE 75 U/L (46-116); ANION GAP 8 mmol/L (5-15); ASPARTATE AMINO TRANSFERASE 7 U/L (15-37); BILIRUBIN,TOTAL 0.3 MG/DL (0.2-1.0); BLOOD UREA NITROGEN 21 mg/dL (7-18); CALCIUM 8.6 MG/DL (8.5-10.1); CARBON DIOXIDE 30 MMOL/L (21-32); CHLORIDE 105 MMOL/L (98-107); CREATININE 0.5 MG/DL (0.55-1.30); POTASSIUM 3.9 MMOL/L (3.5-5.1); SODIUM 143 MMOL/L (136-145)
[2017-11-21 08:00] VITALS: BP 136/73
[2017-11-21] MEDS ORDERED: Valproic Acid 250mg/5ml Liquid ORAL SCH (09:00)
[2017-11-21] MEDS: Aspirin EC 81mg tab ORAL SCH (09:08)
[2017-11-21] MEDS: Benztropine 1mg tab ORAL SCH ×2 (09:08→18:08)
[2017-11-21] MEDS: Ascorbic Acid 500mg tab ORAL SCH (09:10)
[2017-11-21] MEDS: Docusate 100mg cap ORAL SCH (09:10)
[2017-11-21] MEDS: Citalopram Hydrobromide 10mg Tab ORAL SCH (09:11)
[2017-11-21] MEDS: Metoprolol 25mg tab ORAL SCH ×2 (09:12→20:55)
[2017-11-21] MEDS: Heparin 5000 units/ml inj SUBQ SCH ×2 (09:15→20:53)
--- NOTE | 2017-11-21 11:46 | General Progress Note ---
Assessment/Plan Assessment/Plan encephalopathy due to [facility] [place] UTI -the pt will started on antipsychotic -the pt will be started on mood stabilizer -the pt was provided with ro/st Subjective Date patient seen: Nov 21, 2017 Neurologic/Psychiatric: Reports: anxiety, depressed, emotional problems Allergies: Coded Allergies: ALCOHOL (Verified Allergy, Unknown, 11/28/09) FISH CONTAINING PRODUCTS (Verified Allergy, Unknown, Hives, 11/21/17) Subjective calmer more alert and oriented still anxious. Objective Last 24 Hour Vital Signs Date Time Temp Pulse Resp B/P (MAP) Pulse Ox O2 Delivery O2 Flow Rate FiO2 11/21/17 09:12 76 136/73 11/21/17 08:00 97.8 76 19 136/73 (94) 96 97.8 11/21/17 08:00 Room Air 11/21/17 07:44 70 16 Room Air 21 11/21/17 04:00 97.1 70 20 102/62 (75) 92 97.1 11/21/17 00:00 97.6 61 20 116/60 (78) 95 97.6 11/20/17 23:59 Room Air 11/20/17 21:45 97.6 68 20 96/57 (70) 98 97.6 11/20/17 21:40 98.1 98 20 114/69 99 Room Air 98.1 11/20/17 20:32 98.1 98 20 114/69 99 Room Air 98.1 11/20/17 18:19 98.0 63 20 102/65 97 Room Air 98.1 Intake and Output 11/20/17 11/21/17 19:00 07:00 Intake Total 55 ml Balance 55 ml Intake IV Total 55 ml # Voids 4 # Bowel Movements 1 Laboratory Tests 11/20/17 19:15: Urine Color Yellow, Urine Appearance Cloudy, Urine pH 6, Urine Specific [place] 1.015, Urine Protein 1+H, Urine Glucose (UA) Negative, Urine Ketones 1+H, Urine Blood 1+H, Urine Nitrite PositiveH, Urine Bilirubin Negative, Urine Urobilinogen Normal, Urine Leukocyte Esterase 3+H, Urine RBC 2-4H, Urine WBC TntcH, Urine Squamous Epithelial Cells ManyH, Urine Bacteria ManyH 11/20/17 19:18: White Blood Count 10.1, Red Blood Count 3.56L, Hemoglobin 11.4L, Hematocrit 33.1L, Mean Corpuscular Volume 93, Mean Corpuscular Hemoglobin 32.0H, Mean Corpuscular Hemoglobin Concent 34.4, Red Cell Distribution Width 12.3, Platelet Count 200, Mean Platelet Volume 7.9, Neutrophils (%) (Auto) 72.5, Lymphocytes (% ) (Auto) 19.2L, Monocytes (%) (Auto) 5.2, Eosinophils (%) (Auto) 2.2, Basophils (%) (Auto) 0.9, Sodium Level 140, Potassium Level 4.3, Chloride Level 105, Carbon Dioxide Level 29, Anion Gap 6, Blood Urea Nitrogen 26H, Creatinine 0.7, Estimat Glomerular Filtration Rate , Glucose Level 90, Lactic Acid Level 1.10, Calcium Level 8.5, Total Bilirubin 0.2, Aspartate Amino Transf (AST/SGOT) 7L, Alanine Aminotransferase (ALT/SGPT) 12, Alkaline Phosphatase 77, Total Creatine Kinase 38, Troponin I 0.000, Total Protein 7.2, Albumin 3.0L, Globulin 4.2, Albumin/Globulin Ratio 0.7L 11/21/17 05:35: White Blood Count 8.2, Red Blood Count 3.67L, Hemoglobin 11.5L, Hematocrit 34.6L , Mean Corpuscular Volume 94, Mean Corpuscular Hemoglobin 31.3H, Mean Corpuscular Hemoglobin Concent 33.2, Red Cell Distribution Width 12.7, Platelet Count 184, Mean Platelet Volume 8.0, Neutrophils (%) (Auto) 68.5, Lymphocytes (% ) (Auto) 22.2, Monocytes (%) (Auto) 5.7, Eosinophils (%) (Auto) 2.9, Basophils ( %) (Auto) 0.8, Sodium Level 143, Potassium Level 3.9, Chloride Level 105, Carbon Dioxide Level 30, Anion Gap 8, Blood Urea Nitrogen 21H, Creatinine 0.5L, Estimat Glomerular Filtration Rate , Glucose Level 84, Calcium Level 8.6, Total Bilirubin 0.3, Aspartate Amino Transf (AST/SGOT) 7L, Alanine Aminotransferase ( ALT/SGPT) 15, Alkaline Phosphatase 75, Total Protein 7.2, Albumin 3.0L, Globulin 4.2, Albumin/Globulin Ratio 0.7L Height (Feet): 5 Height (Inches): 4.00 Weight (Pounds): 194 General Appearance: no apparent distress, alert, confused, agitated Kenna Dillard MD Nov 21, 2017 11:46
[2017-11-21 12:00] VITALS: BP 117/60
--- NOTE | 2017-11-21 12:01 | Diagnostic Imaging Report ---
Indication: Chest pain Comparison: 02/10/2016 A single view chest radiograph was obtained. Findings: Right hemidiaphragm is elevated. Lungs are grossly clear. Heart is borderline enlarged. Bones are osteopenic. IMPRESSION: No acute disease identified. Chronic elevation of right hemidiaphragm
--- NOTE | 2017-11-21 13:22 | Consultation ---
Consult Note Consult Note HEMATOLOGY-ONCOLOGY CONSULTATION REFERRING PHYSICIAN: Dima Armenta MD DATE OF CONSULTATION: 11/21/2017 REASON FOR CONSULTATION: Evaluation of anemia. HPI HPI 72-year-old female presents to the emergency room due to ams and agitation the pt found to have uti. the pt has cognitive impairment and is easily agitated the pt has impairment of cognition and waxing and waning of consciousness. I have been consulted for the evaluation of anemia. Currently mild with an hgb at 11.5 in addition noted to have a dvt Medication History Scheduled Ascorbic Acid* (Ascorbic Acid*), 500 MG ORAL BID, (Reported) Aspirin* (Aspir 81*), 81 MG ORAL DAILY, (Reported) Benztropine Mesylate (Cogentin 1mg*), 1 MG PO BID, (Reported) Benztropine Mesylate* (Cogentin*), 1 MG PO BID, (Reported) Citalopram Hydrobromide* (Celexa*), 5 MG PO EVERY OTHER DAY, (Reported) Clonazepam* (Klonopin*), 1 MG ORAL Q6H, (Reported) Cran/Vitc/Mannose/Inulin/Brom (Uti-Stat Liquid), 3,875 MG PO DAILY, (Reported) Cranberry (Cranberry), 1 TAB PO BID, (Reported) Dextromethorphan Hbr/Quinidine (Nuedexta 20-10 Mg Capsule), 1 EACH PO BID, ( Reported) Divalproex Sodium* (Depakote*), 250 MG PO Q12HR, (Reported) Docusate Sodium* (Colace*), 100 MG ORAL DAILY, (Reported) Donepezil Hcl* (Aricept*), 10 MG ORAL BEDTIME, (Reported) Ertapenem Sodium* (INVanz*), 1 GM IVPB Q24H, (Reported) Furosemide* (Lasix*), 20 MG ORAL DAILY, (Reported) Gabapentin (Neurontin), 300 MG PO BID, (Reported) Gabapentin (Neurontin), 300 MG ORAL THREE TIMES A DAY, (Reported) Guaifenesin (Denise-Tussin), 100 MG PO EVERY 6 HOURS, (Reported) Heparin Sod (Porcine) (Heparin Sodium*), 5,000 UNITS SUBQ BID, (Reported) Heparin Sodium,Porcine/Pf (Heparin Sod 1,000 Unit/Ml Vial), 5,000 UNIT SUBQ Q12HR, (Reported) Hydroxyzine HCl (Hydroxyzine HCl), 25 MG ORAL FOUR TIMES A DAY, (Reported) Insulin Regular, Human* (Novolin R*), 0 SUBQ .SLIDING SCALE, (Reported) Levofloxacin* (Levaquin*), 250 MG ORAL DAILY, (Reported) Magnesium Hydroxide* (Milk Of Magnesia*), 30 ML ORAL DAILY, (Reported) Metoprolol Tartrate* (Metoprolol Tartrate*), 25 MG ORAL Q12HR, (Reported) Multivitamin (Multi Vitamin Daily), 1 EACH PO DAILY, (Reported) Olanzapine* (Zyprexa*), 5 MG ORAL BID, (Reported) Omeprazole (Omeprazole), 20 MG ORAL ACBREAKFAST, (Reported) Ranitidine Hcl* (Zantac*), 150 MG ORAL BEDTIME, (Reported) Risperidone* (Risperdal*), 2 MG ORAL THREE TIMES A DAY, (Reported) Sucralfate* (Carafate*), 1 GM ORAL AC, (Reported) Scheduled PRN Acetaminophen (Acetaminophen), 650 MG ORAL Q4H PRN for Mild Pain/Temp > 100.5, ( Reported) Acetaminophen/Hydrocodone 7.5/750 (Vicodin Es), 1 TAB ORAL Q4HR PRN for Moderate Pain (Pain Scale 4-6), (Reported) Ipratropium [place] 0.5MG/2.5ML (Ipratropium [place] 0.5MG/2.5ML), 0.5 MG HHN EVERY 4 HOURS PRN for Shortness of Breath, (Reported) Lorazepam* (Ativan*), 0.25 MG ORAL BID PRN for For Anxiety, (Reported) Patient History Limited by: medical condition History Provided By: Patient, Medical Record, PMD Healthcare decision maker Resuscitation status Advanced Directive on File Yes Past Medical/Surgical History Past Medical/Surgical History: (1) Fever (2) Troponin I above reference range (3) Hypokalemia (4) Positive blood culture (5) Hypoxemia (6) Leukocytosis (7) Diabetes (8) Anemia (9) Multiple sclerosis (10) Respiratory failure (11) Pneumonia (12) Sepsis (13) UTI (urinary tract infection) (14) Altered mental status ROS Review of Systems Negative except HPI. Physical Exam Physical Exam General Appearance: no apparent distress, alert, confused, agitated Last 24 Hour Vital Signs Date Time Temp Pulse Resp B/P (MAP) Pulse Ox O2 Delivery O2 Flow Rate FiO2 11/20/17 21:45 97.6 68 20 96/57 (70) 98 97.6 11/20/17 21:40 98.1 98 20 114/69 99 Room Air 98.1 11/20/17 20:32 98.1 98 20 114/69 99 Room Air 98.1 11/20/17 18:19 98.0 63 20 102/65 97 Room Air 98.1 Laboratory Tests Test 11/20/17 19:15 11/20/17 19:18 Urine Color Yellow Urine Appearance Cloudy Urine pH 6 (4.5-8.0) Urine Specific [place] 1.015 (1.005-1.035) Urine Protein 1+ (NEGATIVE) H Urine Glucose (UA) Negative (NEGATIVE) Urine Ketones 1+ (NEGATIVE) H Urine Blood 1+ (NEGATIVE) H Urine Nitrite Positive (NEGATIVE) H Urine Bilirubin Negative (NEGATIVE) Urine Urobilinogen Normal MG/DL (0.0-1.0) Urine Leukocyte Esterase 3+ (NEGATIVE) H Urine RBC 2-4 /HPF (0 - 2) H Urine WBC Tntc /HPF (0 - 2) H Urine Squamous Epithelial Cells Many /LPF (NONE/OCC) H Urine Bacteria Many /HPF (NONE) H White Blood Count 10.1 K/UL (4.8-10.8) Red Blood Count 3.56 M/UL (4.20-5.40) L Hemoglobin 11.4 G/DL (12.0-16.0) L Hematocrit 33.1 % (37.0-47.0) L Mean Corpuscular Volume 93 FL (80-99) Mean Corpuscular Hemoglobin 32.0 PG (27.0-31.0) H Mean Corpuscular Hemoglobin Concent 34.4 G/DL (32.0-36.0) Red Cell Distribution Width 12.3 % (11.6-14.8) Platelet Count 200 K/UL (150-450) Mean Platelet Volume 7.9 FL (6.5-10.1) Neutrophils (%) (Auto) 72.5 % (45.0-75.0) Lymphocytes (%) (Auto) 19.2 % (20.0-45.0) L Monocytes (%) (Auto) 5.2 % (1.0-10.0) Eosinophils (%) (Auto) 2.2 % (0.0-3.0) Basophils (%) (Auto) 0.9 % (0.0-2.0) Sodium Level 140 MMOL/L (136-145) Potassium Level 4.3 MMOL/L (3.5-5.1) Chloride Level 105 MMOL/L (98-107) Carbon Dioxide Level 29 MMOL/L (21-32) Anion Gap 6 mmol/L (5-15) Blood Urea Nitrogen 26 mg/dL (7-18) H Creatinine 0.7 MG/DL (0.55-1.30) Estimat Glomerular Filtration Rate mL/min (>60) Glucose Level 90 MG/DL (74-106) Lactic Acid Level 1.10 mmol/L (0.4-2.0) Calcium Level 8.5 MG/DL (8.5-10.1) Total Bilirubin 0.2 MG/DL (0.2-1.0) Aspartate Amino Transf (AST/SGOT) 7 U/L (15-37) L Alanine Aminotransferase (ALT/SGPT) 12 U/L (12-78) Alkaline Phosphatase 77 U/L (46-116) Total Creatine Kinase 38 U/L (26-308) Troponin I 0.000 ng/mL (0.000-0.056) Total Protein 7.2 G/DL (6.4-8.2) Albumin 3.0 G/DL (3.4-5.0) L Globulin 4.2 g/dL Albumin/Globulin Ratio 0.7 (1.0-2.7) L Height (Feet): 5 Height (Inches): 4.00 Weight (Pounds): 194 Assessment/Plan Assessment/Plan Assessment and Recommendations # Anemia. Currently mild with hgb at 11.5. Will order workup if worsens. --> Cont to monitor for stability. # History of DVT, low-extremity in the past had recanalaized --> repeat duplex of the lower ext r/o dvt # Encephalopathy due to [facility]. Pt started on antipsychotic and mood stabilizer --> on abx # UTI. DC ABX. --> on abx, appreciate id recs I GREATLY APPRECIATE THE CONSULTATION. Maximo Richardson MD Nov 21, 2017 13:22
[2017-11-21 16:00] VITALS: BP 113/61
[2017-11-21 20:00] VITALS: BP 116/63
[2017-11-21] MEDS: cefTRIAXone 1 GM in D5W 55 ML IVPB SCH (20:25)
[2017-11-21] MEDS: Donepezil 10mg tab ORAL SCH (20:55)
--- NOTE | 2017-11-21 21:30 | Consultation ---
DATE OF CONSULTATION: 11/21/2017 INFECTIOUS DISEASE CONSULTATION CONSULTING PHYSICIAN: Timothy Bourne M.D. PRIMARY ATTENDING PHYSICIAN: Dima Armenta M.D. REASON FOR CONSULTATION: Urinary tract infection. HISTORY OF PRESENT ILLNESS: This is a 72-year-old white female, admitted yesterday from nursing facility because of altered mental status, behavioral changes, and confusion. The patient was found to have pyuria. She had no fever. PAST MEDICAL HISTORY: Significant for depression, Parkinson disease, diabetes mellitus, anemia, osteoarthritis, and lack of coordination. ALLERGIES: Allergic to fish containing products. MEDICATIONS: The patient is getting Aricept, famotidine, Depakote, , Celexa, aspirin, Colace, Lasix, metoprolol, benztropine, gabapentin, heparin, vitamin C, [place], magnesium hydroxide, hydroxyzine, get a dose of Rocephin, Atrovent inhaler, and Ativan. SOCIAL HISTORY: [facility] resident. No history of alcohol, drug abuse, or smoking. She is single. REVIEW OF SYSTEMS: No complaints except constipation. PHYSICAL EXAMINATION: VITAL SIGNS: Temperature 97.8, pulse 76, and blood pressure 136/70. GENERAL APPEARANCE: No acute distress. HEAD AND NECK: No oral lesion. Has poor dentition. HEART: Normal rate. LUNGS: Clear. ABDOMEN: Soft, nontender. EXTREMITIES: She has no edema. SKIN: She has early ulcers and erythema. There is no significant skin lesion. LABORATORY AND DIAGNOSTIC DATA: WBC 8.2, hemoglobin 11.5, hematocrit 34.6, and platelets 184,000. Sodium 143, potassium 2.9, chloride 105, bicarbonate 30, BUN 21, creatinine 0.5, and glucose 84. UA showed WBC too numerous to count, leukocyte esterase trace, and 2+ nitrite positive. Urine culture growing Gram-negative bacilli. IMPRESSION: 1. Pyuria with urinary tract infection. 2. Altered mental status. 3. Dementia. 4. Diabetes mellitus. 5. Anemia that is mild. 6. Constipation. RECOMMENDATIONS: Continue with Rocephin. We will follow up the cultures. At the end of my exam, I thank, Dr. Armenta, for involving me in the care of this patient. Timothy Bourne M.D. DR: HAVEN JOB#: [id number] CC:
[2017-11-22] VITALS: BP 121/87
--- NOTE | 2017-11-22 01:15 | History and Physical Report ---
DATE OF ADMISSION: 11/20/2017 HISTORY OF PRESENT ILLNESS: The patient is agitated, screaming, and altered. Mental status is more confused than usual. She is admitted and found to have UTI as well as rule out pneumonia. The patient is a very poor historian and cannot get any reliable history from the patient. PAST MEDICAL HISTORY: Anxiety, obesity, constipation, leg edema, NIDDM, anxiety, neuropathy, advanced organic brain syndrome. ALLERGIES: To alcohol, fish-containing products. MEDICATIONS: Vitamin C, aspirin, Cogentin, Celexa, Klonopin, insulin, benazepril. FAMILY HISTORY: Noncontributory. SOCIAL HISTORY: Denies history of smoking, alcohol, or illicit drugs. REVIEW OF SYSTEMS: Again, poor historian, cannot rely upon her history at this point due to advanced dementia and being more confused than her baseline. PHYSICAL EXAMINATION: VITAL SIGNS: Temperature 97.8, pulse 76, blood pressure 136/70. HEENT: PERRLA. NECK: Supple. No lymphadenopathy. CHEST: Clear to auscultation. GASTROINTESTINAL: Soft, nondistended. Positive bowel sounds. EXTREMITIES: She has 1+ edema. NEUROLOGIC: Reflexes on both sides. Oriented to name only. She is bedbound. SKIN: For skin integrity, please refer to the nursing notes. LABORATORY DATA: WBC of 10.1, hemoglobin 11.4, and platelets of 200,000. Sodium 140, potassium 4.3, BUN of 26, creatinine 0.7. ASSESSMENT AND PLAN: The patient has possible pneumonia, has altered mental status due to pneumonia, UTI. I have asked Dr. Singh, Dr. Bourne, for the treatment of altered mental status, UTI as well as dehydration. Dima Armenta M.D. DR: Lito JOB#: [id number] CC:
[2017-11-22 04:00] VITALS: BP 134/72
--- NOTE | 2017-11-22 07:58 | General Progress Note ---
Assessment/Plan Assessment/Plan # Right calf posterior vein ACUTE DVT, low-extremity in the past had recanalaized --> has been restarted on xarelto 15mg po bid x 21 days --> follow by 20mg po daily x 3 months --> patient with limited understanding of disease process # Anemia. Currently mild with hgb at 11.5. Will order workup if worsens. --> Cont to monitor for stability. # Encephalopathy due to [facility]. Pt started on antipsychotic and mood stabilizer --> on abx # UTI. DC ABX. --> on abx, appreciate id recs I GREATLY APPRECIATE THE CONSULTATION. Subjective Constitutional: Denies: no symptoms, chills, diaphoresis, fever, malaise, weakness, other HEENT: Denies: no symptoms, eye pain, blurred vision, tearing, double vision, ear pain, ear discharge, nose pain, nose congestion, throat pain, throat swelling, mouth pain, mouth swelling, other Cardiovascular: Denies: no symptoms, chest pain, edema, irregular heart rate, lightheadedness, palpitations, syncope, other Respiratory: Denies: no symptoms, cough, orthopnea, shortness of breath, SOB with excertion, SOB at rest, sputum, stridor, wheezing, other Gastrointestinal/Abdominal: Denies: no symptoms, abdomen distended, abdominal pain, black stools, tarry stools, blood in stool, constipated, diarrhea, difficulty swallowing, nausea, poor appetite, poor fluid intake, rectal bleeding , vomiting, other Genitourinary: Denies: no symptoms, burning, discharge, frequency, flank pain, hematuria, incontinence, pain, urgency, other Neurologic/Psychiatric: Denies: no symptoms, anxiety, depressed, emotional problems, headache, numbness, paresthesia, pre-existing deficit, seizure, tingling, tremors, weakness, other Allergies: Coded Allergies: ALCOHOL (Verified Allergy, Unknown, 11/28/09) FISH CONTAINING PRODUCTS (Verified Allergy, Unknown, Hives, 11/21/17) Subjective right calf vein dvt noted Objective Last 24 Hour Vital Signs Date Time Temp Pulse Resp B/P (MAP) Pulse Ox O2 Delivery O2 Flow Rate FiO2 11/22/17 04:00 97.9 74 17 134/72 (92) 92 97.9 11/22/17 00:00 97.9 86 19 121/87 (98) 91 97.9 11/21/17 21:40 82 18 Room Air 21 11/21/17 21:00 Room Air 11/21/17 20:55 76 116/63 11/21/17 20:00 97.0 76 17 116/63 (80) 93 97.0 11/21/17 16:00 98.1 75 19 113/61 (78) 93 98.1 11/21/17 12:00 98.1 73 20 117/60 (79) 93 98.1 11/21/17 09:12 76 136/73 11/21/17 08:00 97.8 76 19 136/73 (94) 96 97.8 11/21/17 08:00 Room Air Intake and Output 11/21/17 11/22/17 19:00 07:00 Intake Total 600 ml 55 ml Output Total 1100 ml Balance 600 ml -1045 ml Intake Oral 600 ml IV Total 55 ml Output Urine Total 1100 ml # Voids 4 Height (Feet): 5 Height (Inches): 4.00 Weight (Pounds): 194 General Appearance: WD/WN EENT: normal ENT inspection Neck: supple Cardiovascular: no gallop/murmur Respiratory/Chest: no respiratory distress Abdomen: soft Extremities: normal range of motion Edema: no edema noted Leg (L), no edema noted Leg (R) Maximo Richardson MD Nov 22, 2017 07:58
[2017-11-22 08:00] VITALS: BP 128/80
[2017-11-22] MEDS: Benztropine 1mg tab ORAL SCH ×2 (09:33→17:24)
[2017-11-22] MEDS: Metoprolol 25mg tab ORAL SCH ×2 (09:34→20:36)
[2017-11-22] MEDS: Aspirin EC 81mg tab ORAL SCH (09:34)
[2017-11-22] MEDS: Docusate 100mg cap ORAL SCH (09:34)
[2017-11-22] MEDS: Ascorbic Acid 500mg tab ORAL SCH (09:34)
[2017-11-22] MEDS: Citalopram Hydrobromide 10mg Tab ORAL SCH (09:34)
[2017-11-22] MEDS: Xarelto 15mg tab ORAL SCH ×2 (09:34→17:24)
--- NOTE | 2017-11-22 11:25 | Infectious Diseases Prog Note ---
Assessment/Plan Assessment/Plan antibiotics : ceftriaxone A 1. e.coli UTI 2. diabetes mellitus 3. dementia 4. Parkinsons disease P 1. continue ceftriaxone 2. will follow up cultures Subjective ROS Limited/Unobtainable: Yes Allergies: Coded Allergies: ALCOHOL (Verified Allergy, Unknown, 11/28/09) FISH CONTAINING PRODUCTS (Verified Allergy, Unknown, Hives, 11/21/17) Objective Vital Signs Last 24 Hour Vital Signs Date Time Temp Pulse Resp B/P (MAP) Pulse Ox O2 Delivery O2 Flow Rate FiO2 11/22/17 09:34 82 128/80 11/22/17 09:00 Room Air 11/22/17 08:00 98.6 82 17 128/80 (96) 92 98.6 11/22/17 04:00 97.9 74 17 134/72 (92) 92 97.9 11/22/17 00:00 97.9 86 19 121/87 (98) 91 97.9 11/21/17 21:40 82 18 Room Air 21 11/21/17 21:00 Room Air 11/21/17 20:55 76 116/63 11/21/17 20:00 97.0 76 17 116/63 (80) 93 97.0 11/21/17 16:00 98.1 75 19 113/61 (78) 93 98.1 11/21/17 12:00 98.1 73 20 117/60 (79) 93 98.1 Height (Feet): 5 Height (Inches): 4.00 Weight (Pounds): 194 Respiratory/Chest: lungs clear Cardiovascular: normal rate, regular rhythm, no gallop/murmur Abdomen: soft, non tender Extremities: no edema Microbiology Date/Time Source Procedure Growth Status 11/20/17 19:33 Blood Blood Culture - Preliminary NO GROWTH AFTER 24 HOURS Resulted 11/20/17 19:18 Blood Blood Culture - Preliminary NO GROWTH AFTER 24 HOURS Resulted 11/20/17 19:15 Urine,Clean Catch Urine Culture - Final Escherichia Coli Complete Current Medications Medications (Trade) Dose Ordered Sig/Ivone Route PRN Reason Start Time Stop Time Status Last Admin Dose Admin Acetaminophen (Tylenol) 650 mg Q6H PRN ORAL Mild Pain/Temp > 100.5 11/21/17 02:00 12/21/17 01:59 11/21/17 09:18 Acetaminophen/ Hydrocodone Bitart ([place] 7.5/325) 1 tab Q4H PRN ORAL For Pain 11/21/17 02:00 11/28/17 01:59 Ascorbic Acid (Vitamin C) 500 mg DAILY ORAL 11/21/17 09:00 12/21/17 08:59 11/22/17 09:34 Aspirin (Ecotrin) 81 mg DAILY ORAL 11/21/17 09:00 12/21/17 08:59 11/22/17 09:34 Benztropine Mesylate (Cogentin) 1 mg BID ORAL 11/21/17 09:00 12/21/17 08:59 11/22/17 09:33 Ceftriaxone Sodium 1 gm/ Dextrose 55 ml @ 110 mls/hr Q24H IVPB 11/21/17 20:00 11/28/17 19:59 11/21/17 20:25 Citalopram Hydrobromide (celeXA) 20 mg DAILY ORAL 11/21/17 09:00 12/21/17 08:59 11/22/17 09:34 Clonazepam (KlonoPIN) 0.5 mg TID ORAL 11/21/17 09:00 11/28/17 08:59 11/22/17 09:34 Divalproex Sodium (Depakote) 250 mg TID ORAL 11/21/17 09:00 12/21/17 08:59 11/22/17 09:33 Docusate Sodium (Colace) 100 mg DAILY ORAL 11/21/17 09:00 12/21/17 08:59 11/22/17 09:34 Donepezil HCl (Aricept) 10 mg BEDTIME ORAL 11/21/17 21:00 12/21/17 20:59 11/21/17 20:55 Famotidine (Pepcid) 20 mg BEDTIME ORAL 11/21/17 21:00 12/21/17 20:59 11/21/17 20:55 Furosemide (Lasix) 20 mg DAILY ORAL 11/21/17 09:00 12/21/17 08:59 11/22/17 09:34 Gabapentin (Neurontin) 300 mg THREE TIMES A DAY ORAL 11/21/17 09:00 12/21/17 08:59 11/22/17 09:34 Guaifenesin/ Dextromethorphan (Robitussin DM Syrup) 5 ml Q4H PRN ORAL For Cough 11/21/17 02:00 12/21/17 01:59 Hydroxyzine HCl (Atarax) 25 mg Q6H PRN ORAL Itching 11/21/17 02:00 12/21/17 01:59 Ipratropium [place] (Atrovent) 500 mcg Q6H PRN HHN Shortness of Breath 11/21/17 02:00 11/26/17 01:59 Lorazepam (Ativan) 1 mg Q6H PRN ORAL For Anxiety 11/20/17 23:45 11/27/17 23:44 Magnesium Hydroxide (Mom) 30 ml DAILYPRN PRN ORAL Constipation 11/21/17 02:00 12/21/17 01:59 11/21/17 15:05 Metoprolol Tartrate (Lopressor) 25 mg Q12HR ORAL 11/21/17 09:00 12/21/17 08:59 11/22/17 09:34 Rivaroxaban (Xarelto) 15 mg BID ORAL 11/22/17 09:00 12/22/17 08:59 11/22/17 09:34 Beulah Max MD Nov 22, 2017 11:25
[2017-11-22 12:00] VITALS: BP 113/61
--- NOTE | 2017-11-22 14:39 | General Progress Note ---
Assessment/Plan Status: stable, progressing Assessment/Plan encephalopathy due to [facility] UTI -the pt will started on antipsychotic -the pt will be started on mood stabilizer -the pt was provided with ro/st Subjective Date patient seen: Nov 22, 2017 Neurologic/Psychiatric: Reports: anxiety, depressed, emotional problems Allergies: Coded Allergies: ALCOHOL (Verified Allergy, Unknown, 11/28/09) FISH CONTAINING PRODUCTS (Verified Allergy, Unknown, Hives, 11/21/17) Subjective calmer more alert doing better Objective Last 24 Hour Vital Signs Date Time Temp Pulse Resp B/P (MAP) Pulse Ox O2 Delivery O2 Flow Rate FiO2 11/22/17 12:00 97.9 68 17 113/61 (78) 92 97.9 11/22/17 10:40 85 18 Room Air 21 11/22/17 09:34 82 128/80 11/22/17 09:00 Room Air 11/22/17 08:00 98.6 82 17 128/80 (96) 92 98.6 11/22/17 04:00 97.9 74 17 134/72 (92) 92 97.9 11/22/17 00:00 97.9 86 19 121/87 (98) 91 97.9 11/21/17 21:40 82 18 Room Air 21 11/21/17 21:00 Room Air 11/21/17 20:55 76 116/63 11/21/17 20:00 97.0 76 17 116/63 (80) 93 97.0 11/21/17 16:00 98.1 75 19 113/61 (78) 93 98.1 Intake and Output 11/21/17 11/22/17 19:00 07:00 Intake Total 600 ml 55 ml Output Total 1100 ml Balance 600 ml -1045 ml Intake Oral 600 ml IV Total 55 ml Output Urine Total 1100 ml # Voids 4 Height (Feet): 5 Height (Inches): 4.00 Weight (Pounds): 194 General Appearance: no apparent distress, alert, confused Kenna Dillard MD Nov 22, 2017 14:39
[2017-11-22 16:00] VITALS: BP 134/73
[2017-11-22 20:00] VITALS: BP 120/64
--- NOTE | 2017-11-22 20:31 | General Progress Note ---
Assessment/Plan Problem List: (1) Diabetes ICD Codes: E11.9 - Type 2 diabetes mellitus without complications SNOMED: 73374495 (2) Sepsis ICD Codes: A41.9 - Sepsis, unspecified organism SNOMED: 93381540 (3) Altered mental status ICD Codes: R41.82 - Altered mental status, unspecified SNOMED: 690408565 (4) Multiple sclerosis ICD Codes: G35 - Multiple sclerosis SNOMED: 27523899 (5) UTI (urinary tract infection) ICD Codes: N39.0 - Urinary tract infection, site not specified SNOMED: 68295278 Qualifiers: Qualified Codes: N30.01 - Acute cystitis with hematuria Status: progressing Assessment/Plan uti abx per id afebrile vitals stable sepsis reviewed chart and labs Subjective ROS Limited/Unobtainable: Yes Allergies: Coded Allergies: ALCOHOL (Verified Allergy, Unknown, 11/28/09) FISH CONTAINING PRODUCTS (Verified Allergy, Unknown, Hives, 11/21/17) Objective Last 24 Hour Vital Signs Date Time Temp Pulse Resp B/P (MAP) Pulse Ox O2 Delivery O2 Flow Rate FiO2 11/22/17 20:00 98.1 80 18 120/64 (82) 94 98.1 11/22/17 16:00 98.1 72 17 134/73 (93) 92 98.1 11/22/17 12:00 97.9 68 17 113/61 (78) 92 97.9 11/22/17 10:40 85 18 Room Air 21 11/22/17 09:34 82 128/80 11/22/17 09:00 Room Air 11/22/17 08:00 98.6 82 17 128/80 (96) 92 98.6 11/22/17 04:00 97.9 74 17 134/72 (92) 92 97.9 11/22/17 00:00 97.9 86 19 121/87 (98) 91 97.9 11/21/17 21:40 82 18 Room Air 21 11/21/17 21:00 Room Air 11/21/17 20:55 76 116/63 Intake and Output 11/21/17 11/22/17 19:00 07:00 Intake Total 600 ml 55 ml Output Total 1100 ml Balance 600 ml -1045 ml Intake Oral 600 ml IV Total 55 ml Output Urine Total 1100 ml # Voids 4 Height (Feet): 5 Height (Inches): 4.00 Weight (Pounds): 194 General Appearance: confused Cardiovascular: normal rate Respiratory/Chest: lungs clear Dima Armenta MD Nov 22, 2017 20:31
[2017-11-22] MEDS: cefTRIAXone 1 GM in D5W 55 ML IVPB SCH (20:36)
[2017-11-22] MEDS: Donepezil 10mg tab ORAL SCH (20:36)
[2017-11-23 00:07] VITALS: BP 122/75
[2017-11-23 04:00] VITALS: BP 127/79
[2017-11-23 08:00] VITALS: BP 129/81
[2017-11-23] MEDS: Citalopram Hydrobromide 10mg Tab ORAL SCH (08:18)
[2017-11-23] MEDS: Ascorbic Acid 500mg tab ORAL SCH (08:18)
[2017-11-23] MEDS: Aspirin EC 81mg tab ORAL SCH (08:19)
[2017-11-23] MEDS: Benztropine 1mg tab ORAL SCH ×2 (08:19→17:22)
[2017-11-23] MEDS: Xarelto 15mg tab ORAL SCH ×2 (08:20→17:22)
[2017-11-23] MEDS: Docusate 100mg cap ORAL SCH (08:20)
[2017-11-23] MEDS: Metoprolol 25mg tab ORAL SCH ×2 (08:22→20:48)
--- NOTE | 2017-11-23 11:45 | General Progress Note ---
Assessment/Plan Problem List: (1) Diabetes ICD Codes: E11.9 - Type 2 diabetes mellitus without complications SNOMED: 77545567 (2) Sepsis ICD Codes: A41.9 - Sepsis, unspecified organism SNOMED: 60037072 (3) Altered mental status ICD Codes: R41.82 - Altered mental status, unspecified SNOMED: 716580036 (4) Multiple sclerosis ICD Codes: G35 - Multiple sclerosis SNOMED: 34251684 (5) UTI (urinary tract infection) ICD Codes: N39.0 - Urinary tract infection, site not specified SNOMED: 10381620 Qualifiers: Qualified Codes: N30.01 - Acute cystitis with hematuria Status: progressing Assessment/Plan pna ? uti improving ams less agitated vitals stable sepsis abx per id Subjective ROS Limited/Unobtainable: Yes Allergies: Coded Allergies: ALCOHOL (Verified Allergy, Unknown, 11/28/09) FISH CONTAINING PRODUCTS (Verified Allergy, Unknown, Hives, 11/21/17) Objective Last 24 Hour Vital Signs Date Time Temp Pulse Resp B/P (MAP) Pulse Ox O2 Delivery O2 Flow Rate FiO2 11/23/17 08:36 78 20 Room Air 21 11/23/17 08:22 74 129/81 11/23/17 08:00 98.1 74 18 129/81 (97) 95 98.1 11/23/17 08:00 Room Air 11/23/17 04:00 98.4 71 18 127/79 (95) 94 98.4 11/23/17 00:07 98.1 77 20 122/75 (91) 93 98.1 11/22/17 21:00 Room Air 11/22/17 20:36 80 120/64 11/22/17 20:00 98.1 80 18 120/64 (82) 94 98.1 11/22/17 19:01 79 20 Room Air 21 11/22/17 16:00 98.1 72 17 134/73 (93) 92 98.1 11/22/17 12:00 97.9 68 17 113/61 (78) 92 97.9 Intake and Output 11/22/17 11/23/17 19:00 07:00 Intake Total 360 ml 55 ml Output Total 600 ml 650 ml Balance -240 ml -595 ml Intake Oral 360 ml IV Total 55 ml Output Urine Total 600 ml 650 ml Height (Feet): 5 Height (Inches): 4.00 Weight (Pounds): 194 General Appearance: confused Dima Armenta MD Nov 23, 2017 11:45
[2017-11-23 12:00] VITALS: BP 131/83
--- NOTE | 2017-11-23 14:09 | General Progress Note ---
Assessment/Plan Status: stable Assessment/Plan # Right calf posterior vein ACUTE DVT, low-extremity in the past had recanalaized --> has been restarted on xarelto 15mg po bid x 21 days --> follow by 20mg po daily x 3 months --> patient with limited understanding of disease process # Anemia. Currently mild with hgb at 11.5. Will order workup if worsens. --> Cont to monitor for stability. # Encephalopathy due to [facility]. Pt started on antipsychotic and mood stabilizer --> on abx # UTI. DC ABX. --> on abx, appreciate id recs I GREATLY APPRECIATE THE CONSULTATION. Subjective Date patient seen: Nov 23, 2017 Hematologic/Lymphatic: Reports: anemia Allergies: Coded Allergies: ALCOHOL (Verified Allergy, Unknown, 11/28/09) FISH CONTAINING PRODUCTS (Verified Allergy, Unknown, Hives, 11/21/17) All Systems: reviewed and negative except above Subjective No acute events. H/H stable. Remains on rivaroxaban. Objective Last 24 Hour Vital Signs Date Time Temp Pulse Resp B/P (MAP) Pulse Ox O2 Delivery O2 Flow Rate FiO2 11/23/17 12:00 98.3 77 18 131/83 (99) 96 98.3 11/23/17 08:36 78 20 Room Air 21 11/23/17 08:22 74 129/81 11/23/17 08:00 98.1 74 18 129/81 (97) 95 98.1 11/23/17 08:00 Room Air 11/23/17 04:00 98.4 71 18 127/79 (95) 94 98.4 11/23/17 00:07 98.1 77 20 122/75 (91) 93 98.1 11/22/17 21:00 Room Air 11/22/17 20:36 80 120/64 11/22/17 20:00 98.1 80 18 120/64 (82) 94 98.1 11/22/17 19:01 79 20 Room Air 21 11/22/17 16:00 98.1 72 17 134/73 (93) 92 98.1 Intake and Output 11/22/17 11/23/17 19:00 07:00 Intake Total 360 ml 55 ml Output Total 600 ml 650 ml Balance -240 ml -595 ml Intake Oral 360 ml IV Total 55 ml Output Urine Total 600 ml 650 ml Height (Feet): 5 Height (Inches): 4.00 Weight (Pounds): 194 General Appearance: no apparent distress EENT: PERRL/EOMI Neck: normal alignment Cardiovascular: normal peripheral pulses Respiratory/Chest: normal breath sounds Abdomen: soft Maximo Richardson MD Nov 23, 2017 14:09
[2017-11-23 16:00] VITALS: BP_SYST 125; BP_SYST 131; BP_DIAS 79; BP_DIAS 85
[2017-11-23 20:00] VITALS: BP 147/84
[2017-11-23] MEDS: cefTRIAXone 1 GM in D5W 55 ML IVPB SCH (20:48)
[2017-11-23] MEDS: Donepezil 10mg tab ORAL SCH (20:48)
--- NOTE | 2017-11-23 23:52 | General Progress Note ---
Assessment/Plan Status: progressing Assessment/Plan encephalopathy due to [facility] UTI -the pt will started on antipsychotic -the pt will be started on mood stabilizer -the pt was provided with ro/st Subjective Date patient seen: Nov 23, 2017 Neurologic/Psychiatric: Reports: anxiety, depressed, emotional problems Allergies: Coded Allergies: ALCOHOL (Verified Allergy, Unknown, 11/28/09) FISH CONTAINING PRODUCTS (Verified Allergy, Unknown, Hives, 11/21/17) Subjective calmer more alert doing better Objective Last 24 Hour Vital Signs Date Time Temp Pulse Resp B/P (MAP) Pulse Ox O2 Delivery O2 Flow Rate FiO2 11/23/17 21:16 Room Air 11/23/17 20:48 84 125/79 11/23/17 20:34 84 18 Room Air 21 11/23/17 20:00 98.6 86 20 147/84 (105) 95 98.6 11/23/17 16:00 97.9 77 18 125/79 (94) 96 97.9 11/23/17 16:00 98.1 103 20 131/85 (100) 98 98.1 11/23/17 12:00 98.3 77 18 131/83 (99) 96 98.3 11/23/17 08:36 78 20 Room Air 21 11/23/17 08:22 74 129/81 11/23/17 08:00 98.1 74 18 129/81 (97) 95 98.1 11/23/17 08:00 Room Air 11/23/17 04:00 98.4 71 18 127/79 (95) 94 98.4 11/23/17 00:07 98.1 77 20 122/75 (91) 93 98.1 Intake and Output 11/22/17 11/23/17 19:00 07:00 Intake Total 360 ml 55 ml Output Total 600 ml 650 ml Balance -240 ml -595 ml Intake Oral 360 ml IV Total 55 ml Output Urine Total 600 ml 650 ml Height (Feet): 5 Height (Inches): 4.00 Weight (Pounds): 194 General Appearance: no apparent distress, alert Neurologic: oriented x 3, responsive Kenna Dillard MD Nov 23, 2017 23:52
[2017-11-24] VITALS: BP 156/83
[2017-11-24 04:00] VITALS: BP 139/77
[2017-11-24 08:00] VITALS: BP 146/97
[2017-11-24] MEDS: Benztropine 1mg tab ORAL SCH ×2 (08:57→17:59)
[2017-11-24] MEDS: Ascorbic Acid 500mg tab ORAL SCH (08:57)
[2017-11-24] MEDS: Citalopram Hydrobromide 10mg Tab ORAL SCH (08:57)
[2017-11-24] MEDS: Aspirin EC 81mg tab ORAL SCH (08:57)
[2017-11-24] MEDS: Xarelto 15mg tab ORAL SCH ×2 (08:57→17:59)
[2017-11-24] MEDS: Metoprolol 25mg tab ORAL SCH ×2 (08:58→20:41)
[2017-11-24] MEDS: Docusate 100mg cap ORAL SCH (08:58)
[2017-11-24 12:00] VITALS: BP 139/86
--- NOTE | 2017-11-24 12:18 | Cardiology Report ---
APPROVED REPORT EKG Measurement Heart [id number] [id number] Normal sinus rhythm Left axis deviation Possible Lateral infarct, age undetermined Abnormal ECG
--- NOTE | 2017-11-24 13:48 | Infectious Diseases Prog Note ---
Assessment/Plan Assessment/Plan A 1. E.coli UTI 2. diabetes mellitus 3. dementia 4. Parkinson's disease 5. Chorea, ? [place] P 1. continue ceftriaxone 2. will follow up cultures Subjective ROS Limited/Unobtainable: Yes Allergies: Coded Allergies: ALCOHOL (Verified Allergy, Unknown, 11/28/09) FISH CONTAINING PRODUCTS (Verified Allergy, Unknown, Hives, 11/21/17) Objective Vital Signs Last 24 Hour Vital Signs Date Time Temp Pulse Resp B/P (MAP) Pulse Ox O2 Delivery O2 Flow Rate FiO2 11/24/17 12:00 97.6 78 19 139/86 (103) 96 97.6 11/24/17 09:00 Room Air 11/24/17 08:58 84 146/97 11/24/17 08:00 98.6 84 18 146/97 (113) 95 98.6 11/24/17 07:50 81 17 Room Air 21 11/24/17 04:00 96.8 86 20 139/77 (97) 97 96.8 11/24/17 00:00 98.3 87 20 156/83 (107) 92 98.3 11/23/17 21:16 Room Air 11/23/17 20:48 84 125/79 11/23/17 20:34 84 18 Room Air 21 11/23/17 20:00 98.6 86 20 147/84 (105) 95 98.6 11/23/17 16:00 97.9 77 18 125/79 (94) 96 97.9 11/23/17 16:00 98.1 103 20 131/85 (100) 98 98.1 Height (Feet): 5 Height (Inches): 4.00 Weight (Pounds): 194 General Appearance: no acute distress HEENT: mucous membranes moist Respiratory/Chest: lungs clear Cardiovascular: normal rate Abdomen: soft, non tender Extremities: no edema Neurologic/Psychiatric: alert, responsive, other - chorea Current Medications Medications (Trade) Dose Ordered Sig/Ivone Route PRN Reason Start Time Stop Time Status Last Admin Dose Admin Acetaminophen (Tylenol) 650 mg Q6H PRN ORAL Mild Pain/Temp > 100.5 11/21/17 02:00 12/21/17 01:59 11/21/17 09:18 Acetaminophen/ Hydrocodone Bitart ([place] 7.5/325) 1 tab Q4H PRN ORAL For Pain 11/21/17 02:00 11/28/17 01:59 11/24/17 12:58 Ascorbic Acid (Vitamin C) 500 mg DAILY ORAL 11/21/17 09:00 12/21/17 08:59 11/24/17 08:57 Aspirin (Ecotrin) 81 mg DAILY ORAL 11/21/17 09:00 12/21/17 08:59 11/24/17 08:57 Benztropine Mesylate (Cogentin) 1 mg BID ORAL 11/21/17 09:00 12/21/17 08:59 11/24/17 08:57 Ceftriaxone Sodium 1 gm/ Dextrose 55 ml @ 110 mls/hr Q24H IVPB 11/21/17 20:00 11/28/17 19:59 11/23/17 20:48 Citalopram Hydrobromide (celeXA) 20 mg DAILY ORAL 11/21/17 09:00 12/21/17 08:59 11/24/17 08:57 Clonazepam (KlonoPIN) 0.5 mg TID ORAL 11/21/17 09:00 11/28/17 08:59 11/24/17 12:59 Divalproex Sodium (Depakote) 250 mg TID ORAL 11/21/17 09:00 12/21/17 08:59 11/24/17 12:58 Docusate Sodium (Colace) 100 mg DAILY ORAL 11/21/17 09:00 12/21/17 08:59 11/24/17 08:58 Donepezil HCl (Aricept) 10 mg BEDTIME ORAL 11/21/17 21:00 12/21/17 20:59 11/23/17 20:48 Famotidine (Pepcid) 20 mg BEDTIME ORAL 11/21/17 21:00 12/21/17 20:59 11/23/17 20:48 Furosemide (Lasix) 20 mg DAILY ORAL 11/21/17 09:00 12/21/17 08:59 11/24/17 08:58 Gabapentin (Neurontin) 300 mg THREE TIMES A DAY ORAL 11/21/17 09:00 12/21/17 08:59 11/24/17 12:58 Guaifenesin/ Dextromethorphan (Robitussin DM Syrup) 5 ml Q4H PRN ORAL For Cough 11/21/17 02:00 12/21/17 01:59 Hydroxyzine HCl (Atarax) 25 mg Q6H PRN ORAL Itching 11/21/17 02:00 12/21/17 01:59 Ipratropium [place] (Atrovent) 500 mcg Q6H PRN HHN Shortness of Breath 11/21/17 02:00 11/26/17 01:59 Lorazepam (Ativan) 1 mg Q6H PRN ORAL For Anxiety 11/20/17 23:45 11/27/17 23:44 Magnesium Hydroxide (Mom) 30 ml DAILYPRN PRN ORAL Constipation 11/21/17 02:00 12/21/17 01:59 11/21/17 15:05 Metoprolol Tartrate (Lopressor) 25 mg Q12HR ORAL 11/21/17 09:00 12/21/17 08:59 11/24/17 08:58 Ondansetron HCl (Zofran) 4 mg Q6H PRN IVP Nausea & Vomiting 11/24/17 10:01 12/24/17 10:00 11/24/17 10:10 Rivaroxaban (Xarelto) 15 mg BID ORAL 11/22/17 09:00 12/22/17 08:59 11/24/17 08:57 Timothy Bourne MD Nov 24, 2017 13:48
[2017-11-24 16:00] VITALS: BP 145/79
--- NOTE | 2017-11-24 16:59 | General Progress Note ---
Assessment/Plan Status: stable Assessment/Plan # Right calf posterior vein ACUTE DVT, low-extremity in the past had recanalaized --> has been restarted on xarelto 15mg po bid x 21 days --> follow by 20mg po daily x 3 months --> patient with limited understanding of disease process # Anemia. Currently mild with hgb at 11.5. Will order workup if worsens. --> Cont to monitor for stability. # Encephalopathy due to [facility]. Pt started on antipsychotic and mood stabilizer --> on abx # UTI. DC ABX. --> on abx, appreciate id recs I GREATLY APPRECIATE THE CONSULTATION. Subjective Date patient seen: Nov 24, 2017 Hematologic/Lymphatic: Reports: anemia Allergies: Coded Allergies: ALCOHOL (Verified Allergy, Unknown, 11/28/09) FISH CONTAINING PRODUCTS (Verified Allergy, Unknown, Hives, 11/21/17) All Systems: reviewed and negative except above Subjective No acute events. H/H stable. Remains on rivaroxaban. Pt c/o nausea, given zofran. Objective Last 24 Hour Vital Signs Date Time Temp Pulse Resp B/P (MAP) Pulse Ox O2 Delivery O2 Flow Rate FiO2 11/24/17 12:00 97.6 78 19 139/86 (103) 96 97.6 11/24/17 09:00 Room Air 11/24/17 08:58 84 146/97 11/24/17 08:00 98.6 84 18 146/97 (113) 95 98.6 11/24/17 07:50 81 17 Room Air 21 11/24/17 04:00 96.8 86 20 139/77 (97) 97 96.8 11/24/17 00:00 98.3 87 20 156/83 (107) 92 98.3 11/23/17 21:16 Room Air 11/23/17 20:48 84 125/79 11/23/17 20:34 84 18 Room Air 21 11/23/17 20:00 98.6 86 20 147/84 (105) 95 98.6 Intake and Output 11/23/17 11/24/17 19:00 07:00 Intake Total 580 ml 55 ml Output Total 350 ml Balance 580 ml -295 ml Intake Oral 580 ml IV Total 55 ml Output Urine Total 350 ml # Voids 3 Height (Feet): 5 Height (Inches): 4.00 Weight (Pounds): 194 General Appearance: no apparent distress EENT: PERRL/EOMI Neck: normal alignment Cardiovascular: normal peripheral pulses Respiratory/Chest: no respiratory distress Abdomen: soft Maximo Richardson MD Nov 24, 2017 16:59
[2017-11-24 20:00] VITALS: BP 125/67
[2017-11-24] MEDS: cefTRIAXone 1 GM in D5W 55 ML IVPB SCH (20:40)
[2017-11-24] MEDS: Donepezil 10mg tab ORAL SCH (20:41)
--- NOTE | 2017-11-24 21:07 | General Progress Note ---
Assessment/Plan Problem List: (1) Diabetes ICD Codes: E11.9 - Type 2 diabetes mellitus without complications SNOMED: 83770327 (2) Sepsis ICD Codes: A41.9 - Sepsis, unspecified organism SNOMED: 51652979 (3) Altered mental status ICD Codes: R41.82 - Altered mental status, unspecified SNOMED: 643345802 (4) Multiple sclerosis ICD Codes: G35 - Multiple sclerosis SNOMED: 21399081 (5) UTI (urinary tract infection) ICD Codes: N39.0 - Urinary tract infection, site not specified SNOMED: 90418936 Qualifiers: Qualified Codes: N30.01 - Acute cystitis with hematuria Status: progressing Assessment/Plan pna ? uti improving ams [place] ordered zofran afebrile Subjective ROS Limited/Unobtainable: Yes Allergies: Coded Allergies: ALCOHOL (Verified Allergy, Unknown, 11/28/09) FISH CONTAINING PRODUCTS (Verified Allergy, Unknown, Hives, 11/21/17) Objective Last 24 Hour Vital Signs Date Time Temp Pulse Resp B/P (MAP) Pulse Ox O2 Delivery O2 Flow Rate FiO2 11/24/17 20:41 72 125/67 11/24/17 20:13 Room Air 11/24/17 20:00 99.4 72 20 125/67 (86) 94 99.4 11/24/17 16:00 98.1 76 18 145/79 (101) 97 98.1 11/24/17 12:00 97.6 78 19 139/86 (103) 96 97.6 11/24/17 09:00 Room Air 11/24/17 08:58 84 146/97 11/24/17 08:00 98.6 84 18 146/97 (113) 95 98.6 11/24/17 07:50 81 17 Room Air 21 11/24/17 04:00 96.8 86 20 139/77 (97) 97 96.8 11/24/17 00:00 98.3 87 20 156/83 (107) 92 98.3 11/23/17 21:16 Room Air Intake and Output 11/23/17 11/24/17 19:00 07:00 Intake Total 580 ml 55 ml Output Total 350 ml Balance 580 ml -295 ml Intake Oral 580 ml IV Total 55 ml Output Urine Total 350 ml # Voids 3 Height (Feet): 5 Height (Inches): 4.00 Weight (Pounds): 194 Cardiovascular: normal rate Respiratory/Chest: lungs clear Abdomen: soft Dima Armenta MD Nov 24, 2017 21:07
[2017-11-25] VITALS: BP 143/73
[2017-11-25 04:00] VITALS: BP 132/70
[2017-11-25 08:00] VITALS: BP 124/58
--- NOTE | 2017-11-25 08:05 | General Progress Note ---
Assessment/Plan Assessment/Plan # Right calf posterior vein ACUTE DVT, low-extremity in the past had recanalaized --> has been restarted on xarelto 15mg po bid x 21 days --> follow by 20mg po daily x 3 months --> patient with limited understanding of disease process # Anemia. Currently mild with hgb at 11.5. Will order workup if worsens. --> Cont to monitor for stability. # Encephalopathy due to [facility]. Pt started on antipsychotic and mood stabilizer --> on abx # UTI. DC ABX. --> on abx, appreciate id recs I GREATLY APPRECIATE THE CONSULTATION. Subjective Constitutional: Denies: no symptoms, chills, diaphoresis, fever, malaise, weakness, other HEENT: Denies: no symptoms, eye pain, blurred vision, tearing, double vision, ear pain, ear discharge, nose pain, nose congestion, throat pain, throat swelling, mouth pain, mouth swelling, other Cardiovascular: Denies: no symptoms, chest pain, edema, irregular heart rate, lightheadedness, palpitations, syncope, other Respiratory: Denies: no symptoms, cough, orthopnea, shortness of breath, SOB with excertion, SOB at rest, sputum, stridor, wheezing, other Genitourinary: Denies: no symptoms, burning, discharge, frequency, flank pain, hematuria, incontinence, pain, urgency, other Neurologic/Psychiatric: Denies: no symptoms, anxiety, depressed, emotional problems, headache, numbness, paresthesia, pre-existing deficit, seizure, tingling, tremors, weakness, other Endocrine: Denies: no symptoms, excessive sweating, flushing, intolerance to cold, intolerance to heat, increased hunger, increased thirst, increased urine, unexplained weight gain, unexplained weight loss, other Hematologic/Lymphatic: Denies: no symptoms, anemia, easy bleeding, easy bruising, other Allergies: Coded Allergies: ALCOHOL (Verified Allergy, Unknown, 11/28/09) FISH CONTAINING PRODUCTS (Verified Allergy, Unknown, Hives, 11/21/17) Subjective No acute events. H/H stable. Remains on rivaroxaban. Pt c/o nausea, given zofran. Objective Last 24 Hour Vital Signs Date Time Temp Pulse Resp B/P (MAP) Pulse Ox O2 Delivery O2 Flow Rate FiO2 11/25/17 04:00 96.9 82 20 132/70 (90) 91 96.9 11/25/17 00:00 97.4 79 20 143/73 (96) 93 97.4 11/24/17 21:58 83 18 Room Air 21 11/24/17 20:41 72 125/67 11/24/17 20:13 Room Air 11/24/17 20:00 99.4 72 20 125/67 (86) 94 99.4 11/24/17 16:00 98.1 76 18 145/79 (101) 97 98.1 11/24/17 12:00 97.6 78 19 139/86 (103) 96 97.6 11/24/17 09:00 Room Air 11/24/17 08:58 84 146/97 Intake and Output 11/24/17 11/25/17 19:00 07:00 Intake Total 350 ml 55 ml Output Total 400 ml Balance -50 ml 55 ml Intake Oral 350 ml IV Total 55 ml Output Urine Total 400 ml # Voids 2 # Bowel Movements 1 Height (Feet): 5 Height (Inches): 4.00 Weight (Pounds): 194 General Appearance: no apparent distress EENT: pharynx normal Neck: supple Cardiovascular: normal rate Respiratory/Chest: chest wall non-tender Abdomen: soft Extremities: normal inspection Edema: 1+ Leg (L), 1+ Leg (R) Edema: mild edema Neurologic: no motor/sensory deficits Maximo Richardson MD Nov 25, 2017 08:05
[2017-11-25] MEDS: Aspirin EC 81mg tab ORAL SCH (08:40)
[2017-11-25] MEDS: Xarelto 15mg tab ORAL SCH (08:40)
[2017-11-25] MEDS: Benztropine 1mg tab ORAL SCH (08:40)
[2017-11-25] MEDS: Citalopram Hydrobromide 10mg Tab ORAL SCH (08:41)
[2017-11-25] MEDS: Docusate 100mg cap ORAL SCH (08:41)
[2017-11-25] MEDS: Ascorbic Acid 500mg tab ORAL SCH (08:41)
[2017-11-25] MEDS: Metoprolol 25mg tab ORAL SCH (08:42)
[2017-11-25 11:02] LABS: BASOPHILS % (AUTO) 0.9 % (0.0-2.0); EOSINOPHILS % (AUTO) 1.4 % (0.0-3.0); HEMATOCRIT 36.4 % (37.0-47.0); HEMOGLOBIN 12.4 G/DL (12.0-16.0); LYMPHOCYTES % (AUTO) 13.9 % (20.0-45.0); MEAN CORPUSCULAR VOLUME 94 FL (80-99); MONOCYTES % (AUTO) 4.5 % (1.0-10.0); NEUTROPHILS % (AUTO) 79.4 % (45.0-75.0); PLATELET COUNT 269 K/UL (150-450); RED BLOOD COUNT 3.88 M/UL (4.20-5.40); RED CELL DISTRIBUTION WIDTH 12.1 % (11.6-14.8); WHITE BLOOD COUNT 12.3 K/UL (4.8-10.8)
[2017-11-25 12:00] VITALS: BP 107/61
--- NOTE | 2017-11-25 23:16 | General Progress Note ---
Assessment/Plan Status: stable, progressing Assessment/Plan encephalopathy due to c UTI -antipsychotic - mood stabilizer -the pt was provided with ro/st Subjective Neurologic/Psychiatric: Reports: anxiety, depressed, emotional problems Allergies: Coded Allergies: ALCOHOL (Verified Allergy, Unknown, 11/28/09) FISH CONTAINING PRODUCTS (Verified Allergy, Unknown, Hives, 11/21/17) Subjective calmer Objective Last 24 Hour Vital Signs Date Time Temp Pulse Resp B/P (MAP) Pulse Ox O2 Delivery O2 Flow Rate FiO2 11/25/17 12:00 97.4 68 19 107/61 (76) 95 97.4 11/25/17 09:00 Room Air 11/25/17 08:42 80 124/58 11/25/17 08:12 80 18 Room Air 21 11/25/17 08:00 96.8 80 20 124/58 (80) 93 96.8 11/25/17 04:00 96.9 82 20 132/70 (90) 91 96.9 11/25/17 00:00 97.4 79 20 143/73 (96) 93 97.4 Intake and Output 11/24/17 11/25/17 19:00 07:00 Intake Total 350 ml 55 ml Output Total 400 ml Balance -50 ml 55 ml Intake Oral 350 ml IV Total 55 ml Output Urine Total 400 ml # Voids 2 # Bowel Movements 1 Laboratory Tests 11/25/17 10:40: White Blood Count 12.3H, Red Blood Count 3.88L, Hemoglobin 12.4, Hematocrit 36.4L, Mean Corpuscular Volume 94, Mean Corpuscular Hemoglobin 32.1H, Mean Corpuscular Hemoglobin Concent 34.2, Red Cell Distribution Width 12.1, Platelet Count 269, Mean Platelet Volume 7.6, Neutrophils (%) (Auto) 79.4H, Lymphocytes ( %) (Auto) 13.9L, Monocytes (%) (Auto) 4.5, Eosinophils (%) (Auto) 1.4, Basophils (%) (Auto) 0.9 Height (Feet): 5 Height (Inches): 4.00 Weight (Pounds): 194 General Appearance: no apparent distress, alert Neurologic: oriented x 3, responsive Kenna Dillard MD Nov 25, 2017 23:16
--- NOTE | 2017-11-25 23:16 | General Progress Note ---
Assessment/Plan Assessment/Plan [place] [facility]ant[place]otic - mood stabilizer -the pt was provided with ro/st Subjective Date patient seen: Nov 24, 2017 Neurologic/Psychiatric: Reports: anxiety, depressed, emotional problems Allergies: Coded Allergies: ALCOHOL (Verified Allergy, Unknown, 11/28/09) FISH CONTAINING PRODUCTS (Verified Allergy, Unknown, Hives, 11/21/17) Subjective calmer Objective Last 24 Hour Vital Signs Date Time Temp Pulse Resp B/P (MAP) Pulse Ox O2 Delivery O2 Flow Rate FiO2 11/25/17 12:00 97.4 68 19 107/61 (76) 95 97.4 11/25/17 09:00 Room Air 11/25/17 08:42 80 124/58 11/25/17 08:12 80 18 Room Air 21 11/25/17 08:00 96.8 80 20 124/58 (80) 93 96.8 11/25/17 04:00 96.9 82 20 132/70 (90) 91 96.9 11/25/17 00:00 97.4 79 20 143/73 (96) 93 97.4 Intake and Output 11/24/17 11/25/17 19:00 07:00 Intake Total 350 ml 55 ml Output Total 400 ml Balance -50 ml 55 ml Intake Oral 350 ml IV Total 55 ml Output Urine Total 400 ml # Voids 2 # Bowel Movements 1 Laboratory Tests 11/25/17 10:40: White Blood Count 12.3H, Red Blood Count 3.88L, Hemoglobin 12.4, Hematocrit 36.4L, Mean Corpuscular Volume 94, Mean Corpuscular Hemoglobin 32.1H, Mean Corpuscular Hemoglobin Concent 34.2, Red Cell Distribution Width 12.1, Platelet Count 269, Mean Platelet Volume 7.6, Neutrophils (%) (Auto) 79.4H, Lymphocytes ( %) (Auto) 13.9L, Monocytes (%) (Auto) 4.5, Eosinophils (%) (Auto) 1.4, Basophils (%) (Auto) 0.9 Height (Feet): 5 Height (Inches): 4.00 Weight (Pounds): 194 General Appearance: no apparent distress, alert Neurologic: oriented x 3, responsive, depressed affect Kenna Dillard MD Nov 25, 2017 23:16
--- NOTE | 2017-11-26 12:30 | Discharge Summary ---
Discharge Summary Discharge Summary _ DATE OF ADMISSION: 11/20/2017 DATE OF DISCHARGE: 11/25/2017 REASON FOR ADMISSION: 72 years old female with past medical history of multiple sclerosis, hypertension, dementia, diabetes mellitus, schizophrenia, depression, anxiety, [facility] due to after mental status. Apparently patient was altered compared with her normal baseline , when she is somewhat confused. Patient denied pain and cough. She denied fever or chills. Laboratory workup revealed no leukocytosis, hemoglobin 11.4, hematocrit 33.1. BUN 26 , creatinine 0.7; stable electrolytes. Troponin negative . Urinalysis with evidence of UTI . Chest x-ray revealed no acute cardiopulmonary pathology. Patient admitted with diagnoses altered mental statu, urinary tract infection, possible pneumonia, dehydration. CONSULTANTS: ID specialist Dr.M. Bourne director trial/oncologist Dr. Richardson psychiatrist [facility] COURSE: Patient admitted and started on empiric antibiotics. ID specialist closely followed. Urine culture revealed Escherichia coli. Blood culture were negative. Antibiotics optimized based on IV recommendations. Altered mental status was likely due to infectious process , superimposed on chronic Alzheimer dementia. Blood sugar was managed with sliding scale of insulin. Blood pressure was managed with beta all. Antiplatelet therapy with aspirin resumed. Pain management was addressed. B bowel regimen instituted. Supplemental oxygen provided as needed to keep pulse oximetry above 92%. Pulmonary toilet was provided as needed. Home medications were resumed. Patient with history of acute DVT right lower extremity. Donor Relations Coordinator closely followed . Patient currently on Xarelto, recommended to complete the course as initially prescribed. Renal parameters and electrolytes were closely monitored ; electrolytes corrected as needed. Nephrotoxins were avoided. Prior to discharge BUN 21 creatinine 0.5. Hemoglobin and hematocrit remained stable. Psychiatrist seen and evaluated the patient , and diagnosed patient with encephalopathy secondary to general medical condition. Patient was provided with reality orientation and supportive therapy. Psychiatric medication regimen was optimized. Patient clinically stabilized and was ready [facility] of care FINAL DIAGNOSES: Urinary tract infection with Escherichia coli Acute encephalopathy , likely secondary to infectious process on chronic Alzheimer dementia Diabetes mellitus Parkinson disease History of acute DVT right lower extremity Multiple sclerosis Hypertension DISCHARGE MEDICATIONS: See Medication Reconciliation list. DISCHARGE INSTRUCTIONS: [facility]. Follow up with medical doctor at the facility. I have been assigned to dictate discharge summary for this account. I was not involved in the patient's management. Jillian Aguilera NP Nov 26, 2017 12:30
== END 2017-11-25 13:10 | DRG 690 ==
LOC: EDBD 18:35 → EDSEX 18:35 → EDBEDREQ 19:10 → EMR 19:22 → 4E 19:25 → EDBEDREQ 20:35
DX: N39.0 Urinary tract infection, site not specified (principal); G93.49 Other encephalopathy; I82.4Z1 Acute embolism and thrombosis of unspecified deep veins of right distal lower extremity; G35 Multiple sclerosis; B96.20 Unspecified Escherichia coli [E. coli] as the cause of diseases classified elsewhere; E11.9 Type 2 diabetes mellitus without complications; Z79.4 Long term (current) use of insulin; G30.9 Alzheimer's disease, unspecified; F02.80 Dementia in other diseases classified elsewhere, unspecified severity, without behavioral disturbance, psychotic disturbance, mood disturbance, and anxiety; I10 Essential (primary) hypertension; D64.9 Anemia, unspecified; F41.9 Anxiety disorder, unspecified; G62.9 Polyneuropathy, unspecified
CPT/HCPCS: 36415; 71045; 80053; 81003; 82550; 83605; 84484; 85025; 87040; 87086; 87181; 93005; 93970; 94664; 96365; 99285; J2405